=== PATIENT | female | born 1940 | race Two or more races ===

== ENCOUNTER 2016-11-23 12:51 | Inpatient (IN) | payer OTHER, MEDICAID ==
[~2016-11-23] VITALS: Ht 157.5 cm; Wt 67.6 kg
[2016-11-23] MEDS ORDERED: Morphine Sulfate 2mg/ml Inj IVP ONE (13:15)
[2016-11-23] MEDS ORDERED: Nitroglycerin 2% oint pkt TOPIC ONE (13:15)
[2016-11-23 14:01] LABS: MEAN CORPUSCULAR HEMOGLOBIN 27.5 PG (27.0-31.0); MEAN CORPUSCULAR HGB CONC 32.5 G/DL (32.0-36.0); MEAN CORPUSCULAR VOLUME 84 FL (80-99); MEAN PLATELET VOLUME 5.2 FL (6.5-10.1); PLATELET COUNT 522 K/UL (150-450); RED BLOOD COUNT 4.37 M/UL (4.20-5.40); RED CELL DISTRIBUTION WIDTH 13.9 % (11.6-14.8); WHITE BLOOD COUNT 14.9 K/UL (4.8-10.8)
--- NOTE | 2016-11-23 14:01 | Diagnostic Imaging Report ---
Indication: Chest Pain Comparison: None A single view chest radiograph was obtained. Findings: Lung volumes are low. No infiltrate seen. Pulmonary vascularity is within normal limits. The bones are osteopenic. There is a pacemaker on the left. Impression: No acute disease
[2016-11-23 14:09] LABS: INR 1.1 (0.9-1.1); PROTHROMBIN TIME 10.9 SEC (9.30-11.50)
[2016-11-23 14:15] VITALS: BP 120/56
[2016-11-23 14:16] LABS: TROPONIN I < 0.30 ng/mL (<=0.30)
[2016-11-23] MEDS ORDERED: COLACE100 MG ORAL (14:16)
[2016-11-23] MEDS ORDERED: CARVEDILOL25 MG ORAL (14:16)
[2016-11-23] MEDS ORDERED: ALBUTEROL2.5 MG/3 M INH (14:16)
[2016-11-23] MEDS ORDERED: BENAZEPRIL HCL10 MG ORAL (14:16)
[2016-11-23] MEDS ORDERED: BISACODYL5 MG ORAL (14:16)
[2016-11-23] MEDS ORDERED: CEFAZOLIN SODIUM1 G1 IV (14:16)
[2016-11-23] MEDS ORDERED: CATAPRES0.1 MG ORAL ×2 (14:16)
[2016-11-23] MEDS ORDERED: CLOPIDOGREL75 MG ORAL (14:16)
[2016-11-23 14:17] LABS: ALANINE AMINOTRANSFERASE 15 U/L (3-33); ALBUMIN/GLOBULIN RATIO 1.1 (1.0-2.7); ANION GAP 13 (5-15); ASPARTATE AMINO TRANSFERASE 51 U/L (5-40); CALCIUM 9.6 mg/dL (8.6-10.2); CARBON DIOXIDE 28 mEQ/L (20-30); CHLORIDE 99 mEQ/L (98-107); CREATININE 0.8 mg/dL (0.5-0.9); HEMOLYSIS 25; POTASSIUM 4.7 mEQ/L (3.4-4.9); SODIUM 140 mEQ/L (135-145); TOTAL PROTEIN 6.3 g/dL (6.6-8.7)
[2016-11-23 14:27] LABS: BAND NEUTROPHILS % (MANUAL) 1 % (0-8); BASOPHILS % (MANUAL) 0 % (0-2); EOSINOPHILS % (MANUAL) 3 % (0-3); LYMPHOCYTES % (MANUAL) 7 % (20-45); NEUTROPHILS % (MANUAL) 86 % (45-75); PLATELET ESTIMATE ADEQUATE; TOTAL CELLS COUNTED 100
[2016-11-23 14:28] LABS: PLATELET MORPHOLOGY NORMAL
[2016-11-23] MEDS ORDERED: FERROUS SULFAT325 MG ORAL ×2 (14:38→18:49)
[2016-11-23] MEDS ORDERED: GUAIFENESIN-CO118 M1 ORAL (14:38)
[2016-11-23] MEDS ORDERED: FLUTICASONE PRO16 G1 NASAL ×2 (14:38→18:45)
[2016-11-23] MEDS ORDERED: MULTIVITAMINS1 EAC2 ORAL (14:38)
[2016-11-23] MEDS ORDERED: PRO-STAT LIQUID30 ML ORAL (14:38)
[2016-11-23] MEDS ORDERED: ISOSORBIDE MONO20 MG PO (14:38)
[2016-11-23] MEDS ORDERED: ZOFRAN4 M3 ORAL (14:38)
[2016-11-23] MEDS ORDERED: VITAMIN C500 M1 ORAL (14:38)
[2016-11-23] MEDS ORDERED: NITROGLYCERIN0.4 MG SL (14:38)
[2016-11-23] MEDS ORDERED: NORCO 5-325 TA1 EACH ORAL (14:38)
[2016-11-23] MEDS ORDERED: ACETAMINOP160 MG/54 ORAL (14:38)
[2016-11-23] MEDS ORDERED: TESSALON PERLE100 MG ORAL (14:38)
--- NOTE | 2016-11-23 15:28 | Emergency Room Report ---
History of Present Illness General Chief Complaint: Chest Pain Source: Patient, EMS Present Illness HPI Patient presents with left-sided chest pain radiating up to her jaw. Apparently she was vomiting earlier today after having abdominal surgery. Allegedly this was for an abdominal hernia and appi. She was unable to get help from SNF staff for several hours. Paramedics treated the patient with Aspirin and one spray of nitroglycerin. She had a tachycardic rhythm after this. Her heart rate at that time he was 130 out. No other treatment was entertained or undertaken. She spontaneously converted from the rapid heart rate. She says complaining about pain in her chest at this time. She rates it 10/10. Pressure. She denied abdominal pain (initially) - seemed more concerned with chest discomfort. Allergies: Coded Allergies: No Known Allergies (Unverified , 11/23/16) Patient History Past Medical History: see triage record Past Surgical History: appy, other - hernia repair Social History: Denies: alcohol use, drug use, smoking Social History Narrative SNF Reviewed Nursing Documentation: PMH: Agreed, PSxH: Agreed Review of Systems All Other Systems: negative except mentioned in HPI Physical Exam Vital Signs Date Time Temp Pulse Resp B/P Pulse Ox O2 Delivery O2 Flow Rate FiO2 11/23/16 12:48 98.2 89 20 109/64 98 Nasal Cannula 4.0 11/23/16 13:40 100 Sp02 EP Interpretation: reviewed, normal General Appearance: well appearing, no apparent distress, GCS 15 Head: normocephalic Eyes: bilateral eye PERRL, bilateral eye normal inspection ENT: moist mucus membranes Neck: supple Respiratory: lungs clear, normal breath sounds Cardiovascular #1: regular rate, rhythm Cardiovascular #2: 2+ radial (R) Gastrointestinal: no guarding, no rebound, tenderness, other - post surgical dressings Musculoskeletal: back normal, gait/station normal, normal range of motion Neurologic: alert, oriented x3, grossly normal Psychiatric: mood/affect normal Skin: warm/dry, other - sallo Medical Decision Making Diagnostic Impression: Primary Impression: ACS (acute coronary syndrome) Additional Impressions: Tachyarrhythmia Abdominal pain Qualified Codes: R10.84 - Generalized abdominal pain Post-op pain ER Course Strips are reviewed from the field. Episode of supraventricular tachycardia spontaneously converted. The rate was 130. Patient presents with chest pain. Differential includes acute myocardial infarction, arrhythmia, GERD. She's postoperative and is also complaining about some abdominal pain and vomiting. Evaluation with EKG, CXR, labs. Treatment with nitrolpaste as aspirin given in field. EKG normal. CXR with pacer/defib. Chest pain is better. C/O abdominal pain. Treated with morphine. Not surgical abdomen. Dr. Kemp is here. Dr. Oscar contacted for consult. Patient improved. Leukocytosis, no source of infection. Will observe instead of starting antibiotics. Laboratory Tests Test 11/23/16 13:35 11/23/16 16:40 11/23/16 18:15 White Blood Count 14.9 K/UL (4.8-10.8) H Red Blood Count 4.37 M/UL (4.20-5.40) Hemoglobin 12.0 G/DL (12.0-16.0) Hematocrit 36.9 % (37.0-47.0) L Mean Corpuscular Volume 84 FL (80-99) Mean Corpuscular Hemoglobin 27.5 PG (27.0-31.0) Mean Corpuscular Hemoglobin Concent 32.5 G/DL (32.0-36.0) Red Cell Distribution Width 13.9 % (11.6-14.8) Platelet Count 522 K/UL (150-450) H Mean Platelet Volume 5.2 FL (6.5-10.1) L Neutrophils (%) (Auto) % (45.0-75.0) Lymphocytes (%) (Auto) % (20.0-45.0) Monocytes (%) (Auto) % (1.0-10.0) Eosinophils (%) (Auto) % (0.0-3.0) Basophils (%) (Auto) % (0.0-2.0) Differential Total Cells Counted 100 Neutrophils % (Manual) 86 % (45-75) H Lymphocytes % (Manual) 7 % (20-45) L Monocytes % (Manual) 3 % (1-10) Eosinophils % (Manual) 3 % (0-3) Basophils % (Manual) 0 % (0-2) Band Neutrophils 1 % (0-8) Platelet Estimate Adequate Platelet Morphology Normal Red Blood Cell Morphology Normal Prothrombin Time 10.9 SEC (9.30-11.50) Prothrombin Time INR 1.1 (0.9-1.1) PTT 27 SEC (23-33) Sodium Level 140 mEQ/L (135-145) Potassium Level 4.7 mEQ/L (3.4-4.9) Chloride Level 99 mEQ/L (98-107) Carbon Dioxide Level 28 mEQ/L (20-30) Anion Gap 13 (5-15) Blood Urea Nitrogen 14 mg/dL (7-23) Creatinine 0.8 mg/dL (0.5-0.9) Estimate Glomerular Filtration Rate mL/min (>60) Glucose Level 163 mg/dL (74-106) H Calcium Level 9.6 mg/dL (8.6-10.2) Total Bilirubin 0.5 mg/dL (0.0-1.2) Aspartate Amino Transferase (AST) 51 U/L (5-40) H Alanine Aminotransferase (ALT) 15 U/L (3-33) Alkaline Phosphatase 125 U/L (35-104) H Total Creatine Kinase 21 U/L (26-140) L Troponin I < 0.30 ng/mL (<=0.30) < 0.30 ng/mL (<=0.30) Pro-B-Type Natriuretic Peptide 205 pg/mL (0-450) Total Protein 6.3 g/dL (6.6-8.7) L Albumin 3.3 g/dL (3.5-5.2) L Globulin 3.0 g/dL Albumin/Globulin Ratio 1.1 (1.0-2.7) Urine Color Yellow Urine Appearance Clear Urine pH 6 (4.5-8.0) Urine Specific [place] 1.015 (1.005-1.035) Urine Protein 1+ (NEGATIVE) H Urine Glucose (UA) Negative (NEGATIVE) Urine Ketones Negative (NEGATIVE) Urine Occult Blood Negative (NEGATIVE) Urine Nitrite Negative (NEGATIVE) Urine Bilirubin Negative (NEGATIVE) Urine Urobilinogen 1 MG/DL (0.0-1.0) H Urine Leukocyte Esterase 1+ (NEGATIVE) H Urine RBC 0-2 /HPF (0 - 2) Urine WBC 5-10 /HPF (0 - 2) H Urine Squamous Epithelial Cells Few /LPF (NONE/OCC) Urine Bacteria Moderate /HPF (NONE) H Urine Fine Granular Casts 2-4 /LPF (NONE) H EKG Diagnostic Results Rate: normal Rhythm: NSR ST Segments: no acute changes Rhythm Strip Diag. Results EP Interpretation: yes Rhythm: NSR, no PVC's, no ectopy Other Impression Auditing Manager strip SVT vs VT rate 130, slight wide complexes Chest X-Ray Diagnostic Results EP Interpretation: Yes Findings: no consolidation, no effusion, no pneumothorax, no acute cardiopulmonary disease, other - atelectasis Number of Views: 1 Last Vital Signs Date Time Temp Pulse Resp B/P Pulse Ox O2 Delivery O2 Flow Rate FiO2 11/23/16 14:15 97.2 77 21 120/56 100 Room Air 11/23/16 13:40 100 11/23/16 12:48 4.0 Status: improved Disposition: ADMITTED INPATIENT Condition: Serious Referrals: NON PHYSICIAN (PCP) Edgar Santiago M.D. November 23, 2016 15:28
--- NOTE | 2016-11-23 15:41 | History & Physical ---
History and Physical History & Physicial dict ACS HTN DM2 recent appy, hernia repair prob CAD high WBC trops cardiology consult CT abd MAY Costello November 23, 2016 15:41
[2016-11-23] MEDS ORDERED: Nitroglycerin Subl 0.4mg tab (Bottle Of 25) SL PRN (15:45)
[2016-11-23] MEDS ORDERED: Acetaminophen Soln 160mg/5ml ORAL PRN (15:45)
[2016-11-23 17:14] LABS: APPEARANCE,URINE CLEAR; KETONES,URINE NEGATIVE (NEGATIVE); LEUKOCYTE ESTERASE ,URINE 1+ (NEGATIVE); NITRITE,URINE NEGATIVE (NEGATIVE); PH,URINE 6 (4.5-8.0); PROTEIN,URINE 1+ (NEGATIVE); UROBILINOGEN,URINE 1 MG/DL (0.0-1.0)
[2016-11-23] MEDS: Norco 5mg/325mg tab ORAL PRN (17:18)
[2016-11-23 17:29] LABS: BACTERIA,URINE MODERATE /HPF; RBC,URINE 0-2 /HPF (0 - 2); SQUAMOUS EPITHELIAL CELL,UR FEW /LPF (NONE/OCC)
[2016-11-23] MEDS ORDERED: ATORVASTATIN CA10 MG ORAL (18:36)
[2016-11-23] MEDS ORDERED: CLONIDINE HCL0.1 MG PO (18:40)
[2016-11-23] MEDS ORDERED: BISACODYL10 M1 RC (18:44)
[2016-11-23 18:45] VITALS: BP 138/69
[2016-11-23] MEDS: Benazepril 10mg tab ORAL SCH (18:47)
[2016-11-23] MEDS ORDERED: NORCO 5-325 TA1 EAC1 ORAL (18:47)
[2016-11-23] MEDS: ceFAZolin 1gm in D5W 55ml IVPB SCH (18:47)
[2016-11-23] MEDS ORDERED: ASCORBIC ACID500 MG ORAL (18:49)
[2016-11-23] MEDS ORDERED: ROBITUSSIN COU237 M1 PO (18:51)
[2016-11-23] MEDS ORDERED: MULTIVITAMINS1 EA13 ORAL (18:53)
[2016-11-23 19:19] LABS: TROPONIN I < 0.30 ng/mL (<=0.30)
[2016-11-23 20:00] VITALS: BP 146/73
[2016-11-23] MEDS: Carvedilol 25mg Tab ORAL SCH (21:26)
--- NOTE | 2016-11-23 23:08 | History and Physical Report ---
DATE OF ADMISSION: 11/23/2016 HISTORY OF PRESENT ILLNESS: The patient is a pleasant 76-year-old woman who comes to the emergency room by the EMS. She had left-sided chest pain radiating to the jaw. The pain was quite severe and was associated with emesis. Her heart rate in the field was 130 and apparently converted spontaneously to sinus rhythm. Her chest pain abated. She had no diaphoresis or shortness of breath. She is not aware of any history of coronary artery disease, but does have a pacemaker. She has risk factors, including diabetes and hypertension. She does have post op abdominal pain. PAST MEDICAL HISTORY: Diabetes, hypertension, and pacemaker. PAST SURGICAL HISTORY: She had abdominal surgery last week for appendicitis and hernia repair. She may have coronary artery disease based on her medication record including nitrates and Plavix. MEDICATIONS: Tylenol, albuterol, protein supplement, vitamins, benazepril, Baljinder, Dulcolax, Coreg, Ancef, Catapres, Plavix, Colace, iron, Flonase, Robitussin, [place], Isordil, multivitamins, nitroglycerin, and Zofran. ALLERGIES: None. SOCIAL HISTORY: She does not smoke or drink. She lives with her . REVIEW OF SYSTEMS: Otherwise unremarkable. PHYSICAL EXAMINATION: GENERAL: The patient appears to be in no distress. She is overweight . VITAL SIGNS: Vital signs are normal. Saturations 100% on room air and heart rate 77. HEENT: Head is normocephalic. NECK: No jugular venous distention. CHEST: Clear. Pacemaker in the left subclavian area. CARDIAC: Rhythm is regular. ABDOMEN: Soft. There are surgical dressings on the umbilicus in the right lower quadrant. EXTREMITIES: No clubbing, cyanosis, or edema. SKIN: Warm and dry. LABORATORY AND DIAGNOSTIC DATA: EKG shows a paced rhythm. Chest x-ray is normal. Laboratory studies show normal coagulation. Blood sugar is slightly elevated at 163. Liver enzymes mildly elevated. Troponin negative. Albumin 3.3. White count 14,900, hemoglobin 12, platelets 522,000, and there is a left shift. Urinalysis is pending. IMPRESSION: 1. Chest pain due to acute coronary syndrome. 2. Possible myocardial infarction. 3. Hypertension. 4. Mild diabetes. 5. Appendectomy and hernia repair. 6. Leukocytosis. PLAN: The patient will be admitted. We will monitor her serial troponin. Dr. Oscar will see her for Cardiology. We will get a CT scan of the abdomen in view of the elevated white count. Urinalysis will be obtained and Ancef will be continued. Ritchie Kemp M.D. DR: Gamaliel JOB#: [id number] CC: Edgar Oscar M.D. MTDClaudia
[2016-11-24] VITALS: BP 137/80
[2016-11-24] MEDS: Norco 5mg/325mg tab ORAL PRN
--- NOTE | 2016-11-24 00:08 | Consultation ---
DATE OF CONSULTATION: 11/23/2016 CARDIOLOGY CONSULT CONSULTING PHYSICIAN: Edgar Oscar M.D. REQUESTING PHYSICIAN: Ritchie Kemp M.D. REASON FOR CONSULTATION: Chest pain in the setting of coronary artery disease. HISTORY OF PRESENT ILLNESS: This is a 76-year-old female with a history of coronary artery disease and prior coronary stents. She has been convalescing at a retirement facility following a repair of right inguinal hernia that was incarcerated. She also had an incidental appendicitis treated at that time. Her postoperative course was complicated by a wound infection and cellulitis. Today, she apparently had nausea, vomiting, and subsequent chest pain. She was sent to the emergency room for evaluation. Her initial troponin level was negative. The patient has a permanent pacemaker and her admitting EKG revealed sinus rhythm with ventricular pacing. PAST MEDICAL HISTORY: Includes hypertension, coronary artery disease with history of coronary stents, permanent pacemaker, hyperlipidemia, class 1 angina, status post appendectomy, status post right inguinal hernia repair, and postoperative cellulitis. ALLERGIES: None. MEDICATIONS: Medications prior to admission, reviewed and reconciled. SOCIAL HISTORY: Denies smoking, alcohol, or substance abuse. FAMILY HISTORY: Noncontributory. REVIEW OF SYSTEMS: She denies fevers or chills. There is no history of thyroid disorder or diabetes. There is no history of seizure or stroke. She denies asthma or blood clots in the legs. She has a permanent pacemaker. She was checked about two months ago. She does not recall the device brand. She has had coronary stents. She denies chest pain. She has not taken nitroglycerin for some time. There is no history of kidney failure. She denies frequency or dysuria. She has aurea in her right abdomen still from her surgery. They itch. She denies melena or bright red blood per rectum. PHYSICAL EXAM: GENERAL: Appears well, in no distress at this time. VITAL SIGNS: Blood pressure 120/56, pulse 77, respirations 21, and afebrile. HEENT: Normocephalic and atraumatic. Conjunctivae are pink. Oropharynx clear. NECK: Supple. Jugular venous pressure normal. LUNGS: Clear. Chest wall without deformity or tenderness to palpation. BREASTS: Without discrete masses. Pacemaker pocket site clean, dry, and nontender. CARDIAC: Regular rhythm and rate. Normal S1 and paradoxically split S2. No murmur. ABDOMEN: Soft and nontender. There is some erythema in the mid suprapubic region. The right aurea are without erythema. There is some ecchymoses in the periumbilical region with erythema. EXTREMITIES: No clubbing, cyanosis, calf tenderness, or edema. LABORATORY DATA: White count 14.9, hemoglobin 12, potassium 4.7, BUN 14, and creatinine 0.8. Troponin negative. Albumin 3. Urinalysis with 5 to 10 white cells and moderate bacteria. IMPRESSION: Chest pain in the setting of immobility and in postoperative state raises concern over possible pulmonary embolic event or an acute coronary syndrome. Musculoskeletal and gastrointestinal etiologies are possible as well. Other problems include postoperative cellulitis and hypertension. Permanent pacemaker with apparent stable function. PLAN: 1. Cardiac monitoring. 2. Serial troponins. 3. Lipid panel. 4. Beta-blockade. 5. Anti-platelet therapy. 6. Nitrates as needed for chest pain. 7. DVT prophylaxis. 8. Venous duplex study. 9. Antimicrobials. 10. Skin care. 11. Possible staple removal. 12. Further recommendations including noninvasive assessment of coronary flow reserve. 13. We will follow. 14. May consider pacemaker interrogation if not recently done. Edgar Oscar M.D. DR: OLIVIA JOB#: [id number] CC: MISTY
[2016-11-24] MEDS ORDERED: Morphine Sulfate 2mg/ml Inj IVP PRN ×2 (00:15→08:15)
[2016-11-24] MEDS: ceFAZolin 1gm in D5W 55ml IVPB SCH ×3 (02:26→17:50)
[2016-11-24 02:40] LABS: ALANINE AMINOTRANSFERASE 14 U/L (3-33); ALBUMIN/GLOBULIN RATIO 0.8 (1.0-2.7); ANION GAP 14 (5-15); ASPARTATE AMINO TRANSFERASE 20 U/L (5-40); CALCIUM 9.3 mg/dL (8.6-10.2); CARBON DIOXIDE 25 mEQ/L (20-30); CHLORIDE 98 mEQ/L (98-107); CREATININE 0.6 mg/dL (0.5-0.9); HEMOLYSIS 1; POTASSIUM 4.5 mEQ/L (3.4-4.9); SODIUM 137 mEQ/L (135-145); TOTAL PROTEIN 6.5 g/dL (6.6-8.7)
[2016-11-24 02:57] LABS: TROPONIN I < 0.30 ng/mL (<=0.30)
[2016-11-24 03:00] LABS: MEAN CORPUSCULAR HGB CONC 32.2 G/DL (32.0-36.0); MEAN CORPUSCULAR VOLUME 84 FL (80-99); MEAN PLATELET VOLUME 5.1 FL (6.5-10.1); PLATELET COUNT 521 K/UL (150-450); RED BLOOD COUNT 4.45 M/UL (4.20-5.40); RED CELL DISTRIBUTION WIDTH 14.2 % (11.6-14.8); WHITE BLOOD COUNT 9.5 K/UL (4.8-10.8)
[2016-11-24 04:00] VITALS: BP 149/76
[2016-11-24 06:27] LABS: CHOLESTEROL/HDL RATIO 3.6 (3.3-4.4)
[2016-11-24 06:32] LABS: THYROID STIMULATING HORMONE 1.24 uIU/mL (0.300-4.500)
[2016-11-24 08:00] VITALS: BP 185/71
[2016-11-24 08:21] LABS: BAND NEUTROPHILS % (MANUAL) 0 % (0-8); BASOPHILS % (MANUAL) 0 % (0-2); EOSINOPHILS % (MANUAL) 0 % (0-3); LYMPHOCYTES % (MANUAL) 10 % (20-45); NEUTROPHILS % (MANUAL) 87 % (45-75); PLATELET ESTIMATE INCREASED; PLATELET MORPHOLOGY NORMAL; TOTAL CELLS COUNTED 100
[2016-11-24 08:22] LABS: ANISOCYTOSIS 1+; HYPOCHROMASIA 1+
[2016-11-24] MEDS: Carvedilol 25mg Tab ORAL SCH ×2 (09:00→20:50)
[2016-11-24] MEDS: Benazepril 10mg tab ORAL SCH ×2 (09:00→17:50)
--- NOTE | 2016-11-24 09:56 | General Progress Note ---
Assessment/Plan Assessment/Plan worse today with emesis and severe abdominal pain cardiology notes reviewed called surgery CT abd/pelvis pdg NGT, NPO, IVF increase pain meds. 1. Chest pain due to acute coronary syndrome. 2. Possible myocardial infarction. 3. Hypertension. 4. Mild diabetes. 5. Appendectomy and hernia repair. 6. Leukocytosis. Subjective Constitutional: Denies: fever Gastrointestinal/Abdominal: Reports: abdominal pain, vomiting Allergies: Coded Allergies: No Known Allergies (Unverified , 11/23/16) Objective Last 24 Hour Vital Signs Date Time Temp Pulse Resp B/P Pulse Ox O2 Delivery O2 Flow Rate FiO2 11/24/16 08:24 185/71 11/24/16 08:00 97.9 86 19 185/71 96 Room Air 11/24/16 04:00 98.1 76 20 149/76 100 Room Air 11/24/16 03:57 79 11/24/16 00:00 75 11/24/16 00:00 96.6 73 18 137/80 99 Room Air 11/23/16 21:26 88 146/73 11/23/16 20:00 97.9 74 20 146/73 96 Room Air 4.0 100 11/23/16 18:47 138/69 11/23/16 18:45 98.2 74 20 138/69 96 Room Air 11/23/16 17:59 75 11/23/16 16:58 79 16 132/59 94 Room Air 11/23/16 14:15 97.2 77 21 120/56 100 Room Air 11/23/16 14:13 98.2 11/23/16 13:43 131/56 11/23/16 13:40 82 20 Nasal Cannula 100 11/23/16 12:48 98.2 89 20 109/64 98 Nasal Cannula 4.0 Intake and Output 11/23/16 11/24/16 19:00 07:00 Intake Total 150 ml Balance 150 ml Intake Oral 0 ml IV Total 150 ml Laboratory Tests 11/23/16 13:35: White Blood Count 14.9H, Red Blood Count 4.37, Hemoglobin 12.0, Hematocrit 36.9L , Mean Corpuscular Volume 84, Mean Corpuscular Hemoglobin 27.5, Mean Corpuscular Hemoglobin Concent 32.5, Red Cell Distribution Width 13.9, Platelet Count 522H, Mean Platelet Volume 5.2L, Neutrophils (%) (Auto) , Lymphocytes (%) (Auto) , Monocytes (%) (Auto) , Eosinophils (%) (Auto) , Basophils (%) (Auto) , Differential Total Cells Counted 100, Neutrophils % (Manual) 86H, Lymphocytes % (Manual) 7L, Monocytes % (Manual) 3, Eosinophils % (Manual) 3, Basophils % ( Manual) 0, Band Neutrophils 1, Platelet Estimate Adequate, Platelet Morphology Normal, Red Blood Cell Morphology Normal, Prothrombin Time 10.9, Prothromb Time International Ratio 1.1, Activated Partial Thromboplast Time 27, Sodium Level 140, Potassium Level 4.7, Chloride Level 99, Carbon Dioxide Level 28, Anion Gap 13, Blood Urea Nitrogen 14, Creatinine 0.8, Estimat Glomerular Filtration Rate , Glucose Level 163H, Calcium Level 9.6, Total Bilirubin 0.5, Aspartate Amino Transf (AST/SGOT) 51H, Alanine Aminotransferase (ALT/SGPT) 15, Alkaline Phosphatase 125H, Total Creatine Kinase 21L, Troponin I < 0.30, Pro-B-Type Natriuretic Peptide 205, Total Protein 6.3L, Albumin 3.3L, Globulin 3.0, Albumin /Globulin Ratio 1.1 11/23/16 16:40: Urine Color Yellow, Urine Appearance Clear, Urine pH 6, Urine Specific [place] 1.015, Urine Protein 1+H, Urine Glucose (UA) Negative, Urine Ketones Negative, Urine Occult Blood Negative, Urine Nitrite Negative, Urine Bilirubin Negative, Urine Urobilinogen 1H, Urine Leukocyte Esterase 1+H, Urine RBC 0-2, Urine WBC 5- 10H, Urine Squamous Epithelial Cells Few, Urine Bacteria ModerateH, Urine Fine Granular Casts 2-4H 11/23/16 18:15: Troponin I < 0.30 11/24/16 01:50: White Blood Count 9.5, Red Blood Count 4.45, Hemoglobin 12.0, Hematocrit 37.4, Mean Corpuscular Volume 84, Mean Corpuscular Hemoglobin 27.0, Mean Corpuscular Hemoglobin Concent 32.2, Red Cell Distribution Width 14.2, Platelet Count 521H, Mean Platelet Volume 5.1L, Neutrophils (%) (Auto) , Lymphocytes (%) (Auto) , Monocytes (%) (Auto) , Eosinophils (%) (Auto) , Basophils (%) (Auto) , Differential Total Cells Counted 100, Neutrophils % (Manual) 87H, Lymphocytes % (Manual) 10L, Monocytes % (Manual) 3, Eosinophils % (Manual) 0, Basophils % ( Manual) 0, Band Neutrophils 0, Platelet Estimate IncreasedH, Platelet Morphology Normal, Sodium Level 137, Potassium Level 4.5, Chloride Level 98, Carbon Dioxide Level 25, Anion Gap 14, Blood Urea Nitrogen 18, Creatinine 0.6, Estimat Glomerular Filtration Rate , Glucose Level 162H, Calcium Level 9.3, Total Bilirubin 0.5, Aspartate Amino Transf (AST/SGOT) 20, Alanine Aminotransferase (ALT/SGPT) 14, Alkaline Phosphatase 113H, Troponin I < 0.30, Total Protein 6.5L, Albumin 2.9L, Globulin 3.6, Albumin/Globulin Ratio 0.8L, Hypochromasia 1+, Anisocytosis 1+, Triglycerides Level 88, Cholesterol Level 125 , LDL Cholesterol 72, HDL Cholesterol 35, Cholesterol/HDL Ratio 3.6, Thyroid Stimulating Hormone (TSH) 1.240 Height (Feet): 5 Height (Inches): 2.00 Weight (Pounds): 149 General Appearance: no apparent distress Neck: supple Cardiovascular: normal rate, regular rhythm Respiratory/Chest: lungs clear Abdomen: non tender, soft, no organomegaly, no mass, hypoactive bowel sounds, other - surgical dressings Edema: no edema noted MAY Anderson November 24, 2016 09:56
[2016-11-24] MEDS: Morphine Sulfate 4mg/ml Inj IVP PRN ×2 (10:07→14:54)
[2016-11-24] MEDS: D5 1/2NS w/KCl 20mEq 1,000 ML IV SCH ×2 (10:11→20:00)
--- NOTE | 2016-11-24 10:32 | General Surgery Progress Note ---
General Surgery-Progress Note Subjective Reason for Consult abd pain Procedure Performed recent laparoscopic appendectomy and right inguinal hernia repair 1 week ago, no fever or chills, eating OK till abd pain started with chest pain and N/V Symptoms: improved Objective Last 24 Hour Vital Signs Date Time Temp Pulse Resp B/P Pulse Ox O2 Delivery O2 Flow Rate FiO2 11/24/16 08:24 185/71 11/24/16 08:00 97.9 86 19 185/71 96 Room Air 11/24/16 04:00 98.1 76 20 149/76 100 Room Air 11/24/16 03:57 79 11/24/16 00:00 75 11/24/16 00:00 96.6 73 18 137/80 99 Room Air 11/23/16 21:26 88 146/73 11/23/16 20:00 97.9 74 20 146/73 96 Room Air 4.0 100 11/23/16 18:47 138/69 11/23/16 18:45 98.2 74 20 138/69 96 Room Air 11/23/16 17:59 75 11/23/16 16:58 79 16 132/59 94 Room Air 11/23/16 14:15 97.2 77 21 120/56 100 Room Air 11/23/16 14:13 98.2 11/23/16 13:43 131/56 11/23/16 13:40 82 20 Nasal Cannula 100 11/23/16 12:48 98.2 89 20 109/64 98 Nasal Cannula 4.0 I&O Intake and Output 11/23/16 11/24/16 19:00 07:00 Intake Total 150 ml Balance 150 ml Intake Oral 0 ml IV Total 150 ml Wound: clean - slight edema and ecchymosis right inguinal hernia scar, no infection Laboratory Tests Test 11/23/16 13:35 11/23/16 16:40 11/23/16 18:15 11/24/16 01:50 White Blood Count 14.9 K/UL (4.8-10.8) H 9.5 K/UL (4.8-10.8) Red Blood Count 4.37 M/UL (4.20-5.40) 4.45 M/UL (4.20-5.40) Hemoglobin 12.0 G/DL (12.0-16.0) 12.0 G/DL (12.0-16.0) Hematocrit 36.9 % (37.0-47.0) L 37.4 % (37.0-47.0) Mean Corpuscular Volume 84 FL (80-99) 84 FL (80-99) Mean Corpuscular Hemoglobin 27.5 PG (27.0-31.0) 27.0 PG (27.0-31.0) Mean Corpuscular Hemoglobin Concent 32.5 G/DL (32.0-36.0) 32.2 G/DL (32.0-36.0) Red Cell Distribution Width 13.9 % (11.6-14.8) 14.2 % (11.6-14.8) Platelet Count 522 K/UL (150-450) H 521 K/UL (150-450) H Mean Platelet Volume 5.2 FL (6.5-10.1) L 5.1 FL (6.5-10.1) L Neutrophils (%) (Auto) % (45.0-75.0) % (45.0-75.0) Lymphocytes (%) (Auto) % (20.0-45.0) % (20.0-45.0) Monocytes (%) (Auto) % (1.0-10.0) % (1.0-10.0) Eosinophils (%) (Auto) % (0.0-3.0) % (0.0-3.0) Basophils (%) (Auto) % (0.0-2.0) % (0.0-2.0) Differential Total Cells Counted 100 100 Neutrophils % (Manual) 86 % (45-75) H 87 % (45-75) H Lymphocytes % (Manual) 7 % (20-45) L 10 % (20-45) L Monocytes % (Manual) 3 % (1-10) 3 % (1-10) Eosinophils % (Manual) 3 % (0-3) 0 % (0-3) Basophils % (Manual) 0 % (0-2) 0 % (0-2) Band Neutrophils 1 % (0-8) 0 % (0-8) Platelet Estimate Adequate Increased H Platelet Morphology Normal Normal Red Blood Cell Morphology Normal Prothrombin Time 10.9 SEC (9.30-11.50) Prothromb Time International Ratio 1.1 (0.9-1.1) Activated Partial Thromboplast Time 27 SEC (23-33) Sodium Level 140 mEQ/L (135-145) 137 mEQ/L (135-145) Potassium Level 4.7 mEQ/L (3.4-4.9) 4.5 mEQ/L (3.4-4.9) Chloride Level 99 mEQ/L (98-107) 98 mEQ/L (98-107) Carbon Dioxide Level 28 mEQ/L (20-30) 25 mEQ/L (20-30) Anion Gap 13 (5-15) 14 (5-15) Blood Urea Nitrogen 14 mg/dL (7-23) 18 mg/dL (7-23) Creatinine 0.8 mg/dL (0.5-0.9) 0.6 mg/dL (0.5-0.9) Estimat Glomerular Filtration Rate mL/min (>60) mL/min (>60) Glucose Level 163 mg/dL (74-106) H 162 mg/dL (74-106) H Calcium Level 9.6 mg/dL (8.6-10.2) 9.3 mg/dL (8.6-10.2) Total Bilirubin 0.5 mg/dL (0.0-1.2) 0.5 mg/dL (0.0-1.2) Aspartate Amino Transf (AST/SGOT) 51 U/L (5-40) H 20 U/L (5-40) Alanine Aminotransferase (ALT/SGPT) 15 U/L (3-33) 14 U/L (3-33) Alkaline Phosphatase 125 U/L (35-104) H 113 U/L (35-104) H Total Creatine Kinase 21 U/L (26-140) L Troponin I < 0.30 ng/mL (<=0.30) < 0.30 ng/mL (<=0.30) < 0.30 ng/mL (<=0.30) Pro-B-Type Natriuretic Peptide 205 pg/mL (0-450) Total Protein 6.3 g/dL (6.6-8.7) L 6.5 g/dL (6.6-8.7) L Albumin 3.3 g/dL (3.5-5.2) L 2.9 g/dL (3.5-5.2) L Globulin 3.0 g/dL 3.6 g/dL Albumin/Globulin Ratio 1.1 (1.0-2.7) 0.8 (1.0-2.7) L Urine Color Yellow Urine Appearance Clear Urine pH 6 (4.5-8.0) Urine Specific [place] 1.015 (1.005-1.035) Urine Protein 1+ (NEGATIVE) H Urine Glucose (UA) Negative (NEGATIVE) Urine Ketones Negative (NEGATIVE) Urine Occult Blood Negative (NEGATIVE) Urine Nitrite Negative (NEGATIVE) Urine Bilirubin Negative (NEGATIVE) Urine Urobilinogen 1 MG/DL (0.0-1.0) H Urine Leukocyte Esterase 1+ (NEGATIVE) H Urine RBC 0-2 /HPF (0 - 2) Urine WBC 5-10 /HPF (0 - 2) H Urine Squamous Epithelial Cells Few /LPF (NONE/OCC) Urine Bacteria Moderate /HPF (NONE) H Urine Fine Granular Casts 2-4 /LPF (NONE) H Hypochromasia 1+ Anisocytosis 1+ Triglycerides Level 88 mg/dL (< 150) Cholesterol Level 125 mg/dL (< 200) LDL Cholesterol 72 mg/dL (60-99) HDL Cholesterol 35 mg/dL (> 60) Cholesterol/HDL Ratio 3.6 (3.3-4.4) Thyroid Stimulating Hormone (TSH) 1.240 uIU/mL (0.300-4.500) Additional Comments CAT scan of abdomen : possible pancreatitiswith edema in tail area, minimal ascites (postop), no abscess, some RIH subq fluid (blood vs serum. Assessment Additional Comments Stable s/p lap appy and RIH repair Possible pancreatitis No evidence of cardiac issue at this time. Plan Additional Comments Amylase, lipase, liquids, Will follow. CINDY JENNINGS November 24, 2016 10:32
[2016-11-24 10:53] LABS: TROPONIN I < 0.30 ng/mL (<=0.30)
[2016-11-24 12:00] VITALS: BP 174/78
--- NOTE | 2016-11-24 15:43 | Wound Care Consultation ---
Wound Assessment Wound Assessment : Wound Present on Admission: Yes New Wound: No Status Change of Wound: No Wound Location Body Site: perineal area - and coccyx area Wound Type: rash - fungal, with erosion Mihai Test: Does not Mihai Percent of Wound [place]/Red: 100 Wound Drainage Odor: None/Absent Tissue Surrounding Wound: Erythemic Wound General Appearance: Reddened Wound Comment #1 Perineal area, coccyx area Left and right groin area fungal rashes with erosion Recommendation -Keep clean and dry -Turn and reposition -Local care for rash per protocol -Assess and f/u accordingly for any change SOREN BENJAMIN RN November 24, 2016 15:43
[2016-11-24 16:00] VITALS: BP 164/67
[2016-11-24 20:25] VITALS: BP 168/70
[2016-11-25 00:07] VITALS: BP 166/79
--- NOTE | 2016-11-25 02:38 | Progress Note ---
DATE: 11/24/2016 SUBJECTIVE: The patient continues to have nausea, vomiting, and abdominal pain. Surgical evaluation noted. Elevated pancreatic enzymes reviewed. No specific chest pain. OBJECTIVE: VITAL SIGNS: Blood pressure 185/71, heart rate 86, and respiratory rate 19. NECK: Supple. LUNGS: Clear. CARDIAC: Regular rhythm and rate. Normal S1 and S2 with a fourth heart sound. ABDOMEN: Soft. Slightly tender in the lower quadrants. EXTREMITIES: No edema. Surgical dressings are in place. LABORATORY DATA: Troponin is negative today. White count down to 9.5 and hemoglobin 12. Amylase 800 and lipase 900. LDL 72. Albumin 2.9. Potassium 4.5, BUN 18, and creatinine 0.6. IMPRESSION: 1. Acute pancreatitis. 2. Noncardiac chest pain. 3. Status post right inguinal hernia repair and appendectomy with postoperative wound infection and cellulitis. 4. Mild protein-calorie malnutrition. 5. Hypertensive heart disease with accelerated blood pressure/hypertensive urgency, possibly due to pain. 6. Permanent pacemaker with appropriate function. 7. Hx of CAD and prior coronary stent. PLAN: 1. Hold diet. 2. Volume support by IV route. 3. Pain control. 4. IV empiric antibiotics. 5. Insulin coverage by sliding scale. 6. DVT prophylaxis. 7. Titrate antihypertensive regimen following control of blood pressure. 8. If NPO, topical antihypertensive regimen will be given. Edgar Oscar M.D. DR: BORIS JOB#: [id number] CC: MISTY
[2016-11-25] MEDS: ceFAZolin 1gm in D5W 55ml IVPB SCH ×2 (03:22→10:17)
[2016-11-25] MEDS: Morphine Sulfate 2mg/ml Inj IVP PRN ×2 (03:23→15:21)
[2016-11-25 04:11] VITALS: BP 162/77
[2016-11-25] MEDS: D5 1/2NS w/KCl 20mEq 1,000 ML IV SCH ×3 (05:04→15:21)
[2016-11-25 08:00] VITALS: BP 147/66
[2016-11-25 08:15] LABS: ALANINE AMINOTRANSFERASE 5 U/L (3-33); ALBUMIN/GLOBULIN RATIO 0.7 (1.0-2.7); ANION GAP 10 (5-15); ASPARTATE AMINO TRANSFERASE 11 U/L (5-40); CARBON DIOXIDE 29 mEQ/L (20-30); CHLORIDE 98 mEQ/L (98-107); CREATININE 0.6 mg/dL (0.5-0.9); HEMOLYSIS 1; MEAN CORPUSCULAR HEMOGLOBIN 29.7 PG (27.0-31.0); MEAN CORPUSCULAR HGB CONC 34.1 G/DL (32.0-36.0); MEAN CORPUSCULAR VOLUME 87 FL (80-99); MEAN PLATELET VOLUME 5.1 FL (6.5-10.1); PLATELET COUNT 369 K/UL (150-450); POTASSIUM 4.1 mEQ/L (3.4-4.9); RED BLOOD COUNT 3.75 M/UL (4.20-5.40); SODIUM 137 mEQ/L (135-145); TOTAL PROTEIN 6.1 g/dL (6.6-8.7); WHITE BLOOD COUNT 17.7 K/UL (4.8-10.8)
--- NOTE | 2016-11-25 08:41 | Diagnostic Imaging Report ---
Indication: Abdominal pain Technique: Spiral acquisitions obtained through the abdomen and pelvis. Patient given oral contrast. No IV contrast utilized, per referring physician request. Multiplanar reconstructions were generated. Total dose length product 779 mGycm. CTDIvol(s) 15 mGy. Dose reduction achieved using automated exposure control Comparison: None Findings: There is evidence of recent surgery. Skin aurea overlie the right flank. Deep to this, there is a subcutaneous phlegmon or fluid collection that measures approximately 7.8 cm transverse by 2.3 cm AP by 4.6 cm craniocaudad. A few gas bubbles are seen within the wound, presumably retained air from the recent surgery. [place] are seen in the region of the appendix, which is absent. Some infiltration of the fat in the region of the appendix is noted, but no focal fluid collections are evident. Skin aurea are seen in the region of the mid abdominal midline. There is infiltration of the subcutaneous fat deep to it, but no definite pathologic fluid collections are evident. Skin aurea are seen in the lower abdominal wall just left of midline, without significant subcutaneous fat changes. There is a small fat-containing ventral hernia in the pelvic midline. There is equivocal slight swelling of the pancreas. Considerable infiltration of the mesenteric fat lateral to the greater curvature of the stomach is noted. There is also considerable infiltration of the mesenteric fat caudad to the pancreas, and tracking down Gerota's fascia bilaterally. No discrete fluid collections are demonstrated. No gas collections are evident. Small amount of ascites fluid is seen over the dome of the liver as well as within the pelvis. This demonstrates slightly higher than normal fluid attenuation, may be bloody. No free intraperitoneal air. There is slight wall thickening of the duodenum adjacent to the pancreatic head. There is a small sliding-type hiatal hernia. Lack of IV contrast limits assessment of the solid organs. The liver demonstrates a subcentimeter low-attenuation lesion in segment 8 which is too small to characterize. The gallbladder is somewhat distended, no radiopaque calculi demonstrated. No biliary ductal dilatation. No focal pancreatic abnormality. The spleen, adrenals are unremarkable. The kidneys demonstrate bilateral cysts. No retroperitoneal or mesenteric mass or adenopathy. No pelvic mass or adenopathy. The uterus is not visualized, presumed surgically absent. There is bilateral L5 spondylolysis, grade 2 L5 on S1 spondylolisthesis. There is an old healed fracture deformity of the left inferior and superior pubic rami. The superior pubic ramus fracture appears incompletely united, however. There are calcifications within the subcutaneous fat of the lumbar region, probably from prior injections. Pacemaker wires are seen within the heart. The lung bases demonstrate some nonspecific interstitial septal prominence and bronchial wall thickening and minimal bronchiectasis. Impression: Postsurgical changes, as described, with evidence of recent laparoscopic appendectomy. There is a 7.8 x 2.3 x 4.6 cm phlegmon or fluid collection within the right lower quadrant wound. This is probably routine postoperative fluid, but abscess collection not completely excludable. Equivocal slight prominence of the pancreas. There is considerable infiltration of the peripancreatic and upper abdominal fat as well as fluid/thickening of Gerota's fascia bilaterally. While possibly related to the recent surgery, distribution of this is not typical for such, and raises concern for acute pancreatitis. Correlation with laboratory findings is recommended. Trace ascites fluid. Possibly related to recent surgery or pancreatic disease. Somewhat high attenuation indicates this fluid could be bloody Slight wall thickening of the duodenum, could be related to adjacent pancreatic disease or could indicate mild duodenitis -- Bilateral L5 spondylolysis, with grade 2 L5 on S1 spondylolisthesis and secondary degenerative change Small fat-containing ventral hernia in the pelvic midline Subcentimeter low-attenuation lesion within the liver, too small to characterize, most likely benign cyst or bile hamartoma. No further followup necessary Incidental findings as noted, including nonspecific bilateral basilar pulmonary interstitial changes, pacemaker wires, left superior and inferior pubic rami old fractures, evidence of prior hysterectomy, bilateral renal cysts Images previously reviewed in person with Dr. Reynolds The CT scanner at [facility] is accredited by the [employer] and the scans are performed using protocols designed to limit radiation exposure to as low as reasonably achievable to attain images of sufficient resolution adequate for diagnostic evaluation.
[2016-11-25 09:03] LABS: ANISOCYTOSIS 1+; BAND NEUTROPHILS % (MANUAL) 0 % (0-8); BASOPHILS % (MANUAL) 0 % (0-2); EOSINOPHILS % (MANUAL) 0 % (0-3); HYPOCHROMASIA 1+; LYMPHOCYTES % (MANUAL) 8 % (20-45); NEUTROPHILS % (MANUAL) 86 % (45-75); PLATELET ESTIMATE ADEQUATE; PLATELET MORPHOLOGY NORMAL; TOTAL CELLS COUNTED 100
[2016-11-25] MEDS: Benazepril 10mg tab ORAL SCH ×2 (10:16→18:14)
[2016-11-25] MEDS: Carvedilol 25mg Tab ORAL SCH ×2 (10:16→22:05)
--- NOTE | 2016-11-25 10:33 | General Surgery Progress Note ---
General Surgery-Progress Note Subjective Symptoms: improved Additional Comments patient seen and examined at bedside. no acute events. doing well. minimal pain. no n/v/f/c. comfortable. wants to eat and go home Objective Last 24 Hour Vital Signs Date Time Temp Pulse Resp B/P Pulse Ox O2 Delivery O2 Flow Rate FiO2 11/25/16 10:16 97 147/66 11/25/16 10:16 147/66 11/25/16 08:00 99.1 89 20 147/66 95 Room Air 11/25/16 08:00 97 11/25/16 05:06 179/83 11/25/16 04:11 97.0 102 20 162/77 Room Air 11/25/16 04:00 98 11/25/16 00:07 96.8 100 20 166/79 95 Room Air 11/25/16 00:00 101 11/24/16 21:12 183/113 11/24/16 20:50 102 183/113 11/24/16 20:25 97.5 99 20 168/70 96 Room Air 11/24/16 20:00 101 11/24/16 17:50 164/67 11/24/16 16:00 98.1 89 19 164/67 95 Room Air 11/24/16 16:00 88 11/24/16 12:00 96.3 85 48 174/78 94 Room Air 11/24/16 12:00 88 I&O Intake and Output 11/24/16 11/25/16 19:00 07:00 # Voids 2 Wound: clean, dry, intact Drains: none Cardiovascular: RSR Respiratory: clear Abdomen: soft, distended, non-tender, present bowel sounds, other - incisions c /d/i, incisional tenderness, mild LUQ tenderness, mild distention. brusing around incisions. Extremities: no edema, no tenderness Laboratory Tests Test 11/25/16 07:15 White Blood Count 17.7 K/UL (4.8-10.8) #H Red Blood Count 3.75 M/UL (4.20-5.40) L Hemoglobin 11.1 G/DL (12.0-16.0) L Hematocrit 32.7 % (37.0-47.0) L Mean Corpuscular Volume 87 FL (80-99) Mean Corpuscular Hemoglobin 29.7 PG (27.0-31.0) Mean Corpuscular Hemoglobin Concent 34.1 G/DL (32.0-36.0) Red Cell Distribution Width 14.0 % (11.6-14.8) Platelet Count 369 K/UL (150-450) Mean Platelet Volume 5.1 FL (6.5-10.1) L Neutrophils (%) (Auto) % (45.0-75.0) Lymphocytes (%) (Auto) % (20.0-45.0) Monocytes (%) (Auto) % (1.0-10.0) Eosinophils (%) (Auto) % (0.0-3.0) Basophils (%) (Auto) % (0.0-2.0) Differential Total Cells Counted 100 Neutrophils % (Manual) 86 % (45-75) H Lymphocytes % (Manual) 8 % (20-45) L Monocytes % (Manual) 6 % (1-10) Eosinophils % (Manual) 0 % (0-3) Basophils % (Manual) 0 % (0-2) Band Neutrophils 0 % (0-8) Platelet Estimate Adequate Platelet Morphology Normal Hypochromasia 1+ Anisocytosis 1+ Sodium Level 137 mEQ/L (135-145) Potassium Level 4.1 mEQ/L (3.4-4.9) Chloride Level 98 mEQ/L (98-107) Carbon Dioxide Level 29 mEQ/L (20-30) Anion Gap 10 (5-15) Blood Urea Nitrogen 16 mg/dL (7-23) Creatinine 0.6 mg/dL (0.5-0.9) Estimat Glomerular Filtration Rate mL/min (>60) Glucose Level 163 mg/dL (74-106) H Calcium Level 9.0 mg/dL (8.6-10.2) Total Bilirubin 0.5 mg/dL (0.0-1.2) Aspartate Amino Transf (AST/SGOT) 11 U/L (5-40) Alanine Aminotransferase (ALT/SGPT) 5 U/L (3-33) Alkaline Phosphatase 89 U/L (35-104) Total Protein 6.1 g/dL (6.6-8.7) L Albumin 2.7 g/dL (3.5-5.2) L Globulin 3.4 g/dL Albumin/Globulin Ratio 0.7 (1.0-2.7) L Plan Problems: (1) Abdominal pain Assessment & Plan: 76F recently had lap hernia repair and appendectomy and then presented with abdominal pain, nausea, emesis. CT scan with peripanc inflammation suggestive of pancreatitis. [place]/Lip elevated. currently afebrile , HD stable, exam improved, no n/v. Does have leukocytosis today. Dx: Acute pancreatitis -abdominal ultrasound to evaluate for gallstones and gallbladder etiology -okay for clears if can tolerate diet without worsening abdominal pain -conservative medical management of acute pancreatitis -surgical wounds currently look stable without signs of infection. unsure of etiology of leukocytosis at this time. continue IV Abx. -will continue to follow with you. thank you. Douglas Lee November 25, 2016 10:33
[2016-11-25 12:00] VITALS: BP 118/69
[2016-11-25] MEDS ORDERED: Vancomycin 1gm in D5W 275ml IVPB ONE (12:30)
--- NOTE | 2016-11-25 12:39 | Diagnostic Imaging Report ---
Indications: Nasogastric tube placement Technique: Portable supine AP abdomen Findings: Comparison: CT abdomen pelvis earlier today Nasogastric tube has been placed, tip in the region of the gastric fundus, proximal side-port the region of esophagogastric junction. Lower abdomen and pelvis excluded from image. Suggestion of mild distention of small bowel loop left midabdomen, incompletely imaged. Gas-filled colon the right midabdomen. Thorax included on image. Lungs and pleura clear. Heart size, pulmonary vasculature within normal limits. Left chest wall pacemaker in place. IMPRESSION: Nasogastric tube tip in stomach, recommend advancement by 10 cm No evidence of acute abdominopelvic disease, limited as described. Lower abdominopelvic pathology not excludable, due to exclusion from image No evidence of acute cardiopulmonary disease This correlates with Dr. Hutchins's preliminary report.
--- NOTE | 2016-11-25 15:08 | Diagnostic Imaging Report ---
APPROVED REPORT CPT Code: 49832 Present Symptoms Lower Extremity Pain: Bilateral BILATERAL: Imaging reveals a patent deep venous system bilaterally. There is no evidence of thrombus within the femoral, popliteal or tibial segments. The greater saphenous veins are also within normal limits. Doppler indicates normal spontaneous flow within these segments.
[2016-11-25] MEDS: Piperacillin/Tazobactam 3.375 GM in D5W 110 ML IVPB SCH ×2 (15:21→22:06)
[2016-11-25 16:00] VITALS: BP 133/52
[2016-11-25] MEDS ORDERED: Tubing IV Secondary IV ONE ×2 (16:19→18:09)
--- NOTE | 2016-11-25 16:19 | General Progress Note ---
Assessment/Plan Assessment/Plan continued abdominal pain seen by surgery, dx pncreatitis amylase and lipase high called ID re WBC higher clears, IVF 1. Chest pain due to acute coronary syndrome, known CAD, stent 2. no myocardial infarction. 3. Hypertension. 4. Mild diabetes. 5. Appendectomy and hernia repair. 6. Leukocytosis 7. Pancreatitis Subjective Gastrointestinal/Abdominal: Reports: abdominal pain Allergies: Coded Allergies: No Known Allergies (Unverified , 11/23/16) Objective Last 24 Hour Vital Signs Date Time Temp Pulse Resp B/P Pulse Ox O2 Delivery O2 Flow Rate FiO2 11/25/16 15:51 96.0 11/25/16 12:00 96.0 77 17 118/69 94 Room Air 11/25/16 12:00 80 11/25/16 10:16 97 147/66 11/25/16 10:16 147/66 11/25/16 08:00 99.1 89 20 147/66 95 Room Air 11/25/16 08:00 97 11/25/16 05:06 179/83 11/25/16 04:11 97.0 102 20 162/77 Room Air 11/25/16 04:00 98 11/25/16 00:07 96.8 100 20 166/79 95 Room Air 11/25/16 00:00 101 11/24/16 21:12 183/113 11/24/16 20:50 102 183/113 11/24/16 20:25 97.5 99 20 168/70 96 Room Air 11/24/16 20:00 101 11/24/16 17:50 164/67 Intake and Output 11/24/16 11/25/16 19:00 07:00 # Voids 2 Laboratory Tests 11/25/16 07:15: White Blood Count 17.7#H, Red Blood Count 3.75L, Hemoglobin 11.1L, Hematocrit 32.7L, Mean Corpuscular Volume 87, Mean Corpuscular Hemoglobin 29.7, Mean Corpuscular Hemoglobin Concent 34.1, Red Cell Distribution Width 14.0, Platelet Count 369, Mean Platelet Volume 5.1L, Neutrophils (%) (Auto) , Lymphocytes (%) ( Auto) , Monocytes (%) (Auto) , Eosinophils (%) (Auto) , Basophils (%) (Auto) , Differential Total Cells Counted 100, Neutrophils % (Manual) 86H, Lymphocytes % (Manual) 8L, Monocytes % (Manual) 6, Eosinophils % (Manual) 0, Basophils % ( Manual) 0, Band Neutrophils 0, Platelet Estimate Adequate, Platelet Morphology Normal, Hypochromasia 1+, Anisocytosis 1+, Sodium Level 137, Potassium Level 4.1 , Chloride Level 98, Carbon Dioxide Level 29, Anion Gap 10, Blood Urea Nitrogen 16, Creatinine 0.6, Estimat Glomerular Filtration Rate , Glucose Level 163H, Calcium Level 9.0, Total Bilirubin 0.5, Aspartate Amino Transf (AST/SGOT) 11, Alanine Aminotransferase (ALT/SGPT) 5, Alkaline Phosphatase 89, Total Protein 6.1L, Albumin 2.7L, Globulin 3.4, Albumin/Globulin Ratio 0.7L Height (Feet): 5 Height (Inches): 2.00 Weight (Pounds): 149 General Appearance: no apparent distress Cardiovascular: normal rate Respiratory/Chest: lungs clear Abdomen: non tender, soft MAY MARSH November 25, 2016 16:19
--- NOTE | 2016-11-25 16:49 | Progress Note ---
DATE: 11/25/2016 SUBJECTIVE: The patient feels better. She has less pain. No nausea or vomiting. OBJECTIVE: VITAL SIGNS: Blood pressure is still labile up to 179/83 this morning, now 147/66, heart rate 97, respiratory rate 20, and temperature 99.1. SKIN: Skin site with no drainage on the abdomen. HEENT: Conjunctivae are pink. Oropharynx clear. NECK: Supple. LUNGS: Clear. CARDIAC: Regular rhythm and rate. Normal S1, S2. ABDOMEN: Soft. Mild tenderness in the left upper quadrant. EXTREMITIES: Trace edema. LABORATORY DATA: White count up to 17.7 and hemoglobin 11.1. Potassium 4.1, BUN 16, and creatinine 0.6. Albumin 2.8. IMPRESSION: 1. Acute pancreatitis. 2. Leukocytosis. 3. Noncardiac chest pain in the setting of known CAD and prior coronary stent. 4. Accelerated hypertension. 5. Moderate protein-calorie malnutrition. 6. Worsening leukocytosis. 7. Permanent pacemaker. PLAN: 1. Broaden antibiotic spectrum. 2. Check chest x-ray. 3. Decrease intravenous fluids. 4. Continue beta-pedro pablo. 5. Titrate angiotensin-converting enzyme inhibitor. 6. As needed clonidine for blood pressure spike. 7. Follow up pancreatic enzymes and ultrasound. Edgar Oscar M.D. DR: GERBER JOB#: [id number] CC: MISTY
--- NOTE | 2016-11-25 16:54 | Infectious Diseases Prog Note ---
Assessment/Plan Assessment/Plan Full consult dictated: A) 1) sepsis, leukocytosis, pancreatitis, post-op fluid vs abscess on ct scan abdomen, doubt uti as sepsis source 2) s/p appendectomy 3) pmh noted 4) allergies - negative P) 1) vancomycin and zosyn 2) check bc, labs, check uc 3) continue treatment per Dr. Kemp and consultants 4) thank you Subjective Allergies: Coded Allergies: No Known Allergies (Unverified , 11/23/16) Objective Vital Signs Last 24 Hour Vital Signs Date Time Temp Pulse Resp B/P Pulse Ox O2 Delivery O2 Flow Rate FiO2 11/25/16 16:00 98.8 82 19 133/52 95 Room Air 11/25/16 15:51 96.0 11/25/16 12:00 96.0 77 17 118/69 94 Room Air 11/25/16 12:00 80 11/25/16 10:16 97 147/66 11/25/16 10:16 147/66 11/25/16 08:00 99.1 89 20 147/66 95 Room Air 11/25/16 08:00 97 11/25/16 05:06 179/83 11/25/16 04:11 97.0 102 20 162/77 Room Air 11/25/16 04:00 98 11/25/16 00:07 96.8 100 20 166/79 95 Room Air 11/25/16 00:00 101 11/24/16 21:12 183/113 11/24/16 20:50 102 183/113 11/24/16 20:25 97.5 99 20 168/70 96 Room Air 11/24/16 20:00 101 11/24/16 17:50 164/67 Height (Feet): 5 Height (Inches): 2.00 Weight (Pounds): 149 Microbiology Date/Time Source Procedure Growth Status 11/23/16 14:40 Nasal Nares MRSA Culture - Final NO METHICILLIN RESISTANT STAPH AUREUS... Complete 11/23/16 16:40 Urine,Clean Catch Urine Culture - Final Mixed Urogenital Contaminants Complete 11/23/16 14:40 Rectum VRE Culture - Final NO VANCOMYCIN RESISTANT ENTEROCOCCUS ... Complete Laboratory Tests Test 11/25/16 07:15 White Blood Count 17.7 K/UL (4.8-10.8) #H Red Blood Count 3.75 M/UL (4.20-5.40) L Hemoglobin 11.1 G/DL (12.0-16.0) L Hematocrit 32.7 % (37.0-47.0) L Mean Corpuscular Volume 87 FL (80-99) Mean Corpuscular Hemoglobin 29.7 PG (27.0-31.0) Mean Corpuscular Hemoglobin Concent 34.1 G/DL (32.0-36.0) Red Cell Distribution Width 14.0 % (11.6-14.8) Platelet Count 369 K/UL (150-450) Mean Platelet Volume 5.1 FL (6.5-10.1) L Neutrophils (%) (Auto) % (45.0-75.0) Lymphocytes (%) (Auto) % (20.0-45.0) Monocytes (%) (Auto) % (1.0-10.0) Eosinophils (%) (Auto) % (0.0-3.0) Basophils (%) (Auto) % (0.0-2.0) Differential Total Cells Counted 100 Neutrophils % (Manual) 86 % (45-75) H Lymphocytes % (Manual) 8 % (20-45) L Monocytes % (Manual) 6 % (1-10) Eosinophils % (Manual) 0 % (0-3) Basophils % (Manual) 0 % (0-2) Band Neutrophils 0 % (0-8) Platelet Estimate Adequate Platelet Morphology Normal Hypochromasia 1+ Anisocytosis 1+ Sodium Level 137 mEQ/L (135-145) Potassium Level 4.1 mEQ/L (3.4-4.9) Chloride Level 98 mEQ/L (98-107) Carbon Dioxide Level 29 mEQ/L (20-30) Anion Gap 10 (5-15) Blood Urea Nitrogen 16 mg/dL (7-23) Creatinine 0.6 mg/dL (0.5-0.9) Estimat Glomerular Filtration Rate mL/min (>60) Glucose Level 163 mg/dL (74-106) H Calcium Level 9.0 mg/dL (8.6-10.2) Total Bilirubin 0.5 mg/dL (0.0-1.2) Aspartate Amino Transf (AST/SGOT) 11 U/L (5-40) Alanine Aminotransferase (ALT/SGPT) 5 U/L (3-33) Alkaline Phosphatase 89 U/L (35-104) Total Protein 6.1 g/dL (6.6-8.7) L Albumin 2.7 g/dL (3.5-5.2) L Globulin 3.4 g/dL Albumin/Globulin Ratio 0.7 (1.0-2.7) L Current Medications Medications (Trade) Dose Ordered Sig/Nicole Route PRN Reason Start Time Stop Time Status Last Admin Dose Admin Acetaminophen (Tylenol Peds) 320 mg Q6H PRN ORAL Mild Pain/Temp > 100.5 11/23/16 15:45 12/23/16 15:44 Acetaminophen/ Hydrocodone Bitart ([place] 5/325) 1 tab Q6H PRN ORAL MODERATE TO SEVERE PAIN 11/23/16 16:30 11/30/16 16:29 11/24/16 00:00 Benazepril HCl 20 mg 20 mg BID ORAL 11/25/16 18:00 12/25/16 17:59 Carvedilol (Coreg) 25 mg EVERY 12 HOURS ORAL 11/23/16 21:00 12/23/16 20:59 11/25/16 10:16 Clonidine HCl (Catapres TTS-3) 1 patch We@0900 PRN TDERMAL SBP>180 11/24/16 10:00 12/24/16 09:59 11/24/16 21:12 Clonidine HCl (Catapres) 0.1 mg Q8H PRN ORAL SBP > 170 11/23/16 15:45 12/23/16 15:44 11/25/16 05:06 Clopidogrel Bisulfate (Plavix) 75 mg DAILY ORAL 11/24/16 09:00 12/24/16 08:59 11/25/16 10:16 Clotrimazole 1 applic 1 applic EVERY 12 HOURS TOPIC 11/24/16 21:00 12/24/16 20:59 11/25/16 10:16 Dextrose/ Electrolytes (D5 0.45%NS W/ KCl 20mEq) 1,000 ml @ 75 mls/hr [id number] IV 11/25/16 12:30 12/25/16 12:29 11/25/16 15:21 Morphine Sulfate (Morphine Sulfate) 2 mg Q3HR PRN IVP Moderate Pain (Pain Scale 4-6) 11/24/16 09:30 5/10/17 09:29 11/25/16 15:21 Morphine Sulfate (Morphine Sulfate) 4 mg Q3HR PRN IVP Severe Breakthru Pain (>7) 11/24/16 09:15 12/01/16 09:14 11/24/16 14:54 Nitroglycerin (Ntg) 0.4 mg Q5MIN X 3 DOSES PRN SL CHEST PAIN 11/23/16 15:45 12/23/16 15:44 Ondansetron HCl (Zofran) 4 mg Q4H PRN IVP Nausea & Vomiting 11/24/16 00:15 12/24/16 00:14 11/25/16 03:22 Piperacillin Sod/ Tazobactam Sod/ Dextrose (Zosyn/D5W) 110 ml @ 27.5 mls/hr EVERY 8 HOURS IVPB 11/25/16 14:00 11/30/16 13:59 11/25/16 15:21 Vancomycin HCl 1 ea 1 ea DAILY PRN MISC Per rx protocol 11/25/16 11:45 12/25/16 11:44 Vancomycin HCl/ Dextrose (Vancomycin/D5W) 275 ml @ 183.708 mls/hr Q12H IVPB 11/26/16 04:00 12/01/16 03:59 AKILAH ALVARES November 25, 2016 16:54
[2016-11-25] MEDS: Morphine Sulfate 4mg/ml Inj IVP PRN (20:03)
[2016-11-25 20:27] VITALS: BP 148/53
[2016-11-26 00:14] VITALS: BP 111/45
--- NOTE | 2016-11-26 01:38 | Consultation ---
DATE OF CONSULTATION: 11/25/2016 INFECTIOUS DISEASE CONSULTATION: ATTENDING PHYSICIAN: Ritchie Kemp M.D. REASON FOR CONSULTATION: Leukocytosis and sepsis. CHIEF COMPLAINT: The patient's chief complaint coming in to the hospital is chest pain radiating into jaw and emesis and also elevated heart rate. HISTORY OF PRESENT ILLNESS: This is a 76-year-old female with a history of recent appendectomy. The patient was admitted to the [facility] for chest pain and tachyarrhythmia. The patient had appendicitis and hernia repair last week and had surgery. She had a CT scan of the abdomen and pelvis abdominal pain per the records. It was noted that she had postsurgical changes and 7.8 x 2.3 x 4.6 cm phlegmon or fluid collection in the right lower quadrant, which is probably routine postoperative fluid, but an abscess cannot be excluded. The patient had leukocytosis and Infectious Disease consultation requested. The patient also is noted to have pancreatitis with elevated amylase and lipase. Infectious Disease consultation was requested because of the possibility of sepsis and leukocytosis. Case was communicated with Dr. Kemp and also Dr. Edgar Oscar, cardiology. The patient has been started on vancomycin and Zosyn. Blood cultures were noted. Urinalysis was mildly positive, 5 to 10 white blood cells. Chest x-ray was negative. The patient is also being followed by Surgery. MAR was noted. Orders were noted. Notes were reviewed. REVIEW OF SYSTEMS: Constitutional: The patient has generalized weakness and fatigue, but she does not speak [place], so further history. Head And Neck: She has no fever or chills. No obvious head pain or neck pain. Pulmonary: No congestion or shortness of breath noted. Cardiac: No pressors. She came in with, looks like chest pain. Gastrointestinal: No significant abdominal pain, but she did get morphine. No nausea, vomiting, or diarrhea. GI review of systems was discussed with nursing staff. Genitourinary: No Gandhi. Neurologic: No seizures. Skin: No rash. PAST MEDICAL HISTORY: History of falling. The patient has a past medical history of recent appendicitis and hernia repair surgery this was last week. History of coronary artery disease. History of pacemaker, hypertension, and diabetes. She has a history of coronary stents, hyperlipidemia, angina, and history of postoperative cellulitis. ALLERGIES: No known drug allergies. FAMILY HISTORY: Noncontributory. SOCIAL HISTORY: Negative for smoking, alcohol, or drug abuse. MEDICATIONS: Upon reviewing the MAR, the patient is on the following medications: Vancomycin, Zosyn, Lotensin (benazepril), , morphine, Plavix, Zofran, and carvedilol. She is on clonidine or Catapres also, nitroglycerin, Tylenol, and [place]. Please see medications in medical order and past medical history in medical order. PHYSICAL EXAMINATION: VITAL SIGNS: Temperature 98.8 degrees, pulse rate 82, respiratory rate 19, blood pressure 130/52, saturation 95%, and heart rate 102. GENERAL: Alert and responsive, in no acute distress. HEAD AND NECK: Oral exam, no thrush. Eye exam, no icterus. Neck is supple. No JVD. No sinus tenderness. Normocephalic. No facial droop. No neck stiffness. HEART: Regular. No gallop or murmur. ABDOMEN: Soft. Positive bowel sounds. Incision site is clean and dry. No obvious abdominal pain. LUNGS: Clear bilaterally. No rhonchi, rales, or wheezing. SKIN: No rash or dermatitis. MUSCULOSKELETAL: No effusions or contractures. PERIPHERAL VASCULAR: No cyanosis or gangrene. GENITOURINARY: Without Gandhi. LINES: Line sites without phlebitis. NEUROLOGIC: Generalized weakness. Responsive. LABORATORY DATA: As follows: The patient's white count is 17.7 and hemoglobin 11.1. Creatinine is 0.6. UA has 5 to 10 white blood cells, 1+ leukocyte esterase, and mild bacteria. Blood and urine cultures are pending. Of note also, amylase and lipase are elevated. Lipase . Amylase 802. IMAGING STUDIES: Chest x-ray showed no acute disease. CT scan of the abdomen and pelvis showed the postsurgical changes and the possible phlegmon, which is probably postoperative fluid, but abscess cannot be excluded. ASSESSMENT AND PLAN: 1. The patient has possible sepsis, leukocytosis, heart rate over 100, now it is improved. She has history of tachyarrhythmias. The patient's sepsis source could be pancreatitis, which can cause sepsis and leukemoid reaction. Must consider possibility of urinary tract infection even though the urinalysis only have 5 to 10 white blood cells. I do not think this is the source of possible sepsis. We will check blood and urine cultures. Continue vancomycin and Zosyn. With regards to CT findings, it could be postsurgical fluid; however, must consider abscess if the patient's leukocytosis persists and is being followed by Surgery. Check blood and urine culture. Check followup labs. Also, there is no diarrhea to C. difficile at this time. 2. The patient has history of diabetes. 3. Hypertension. 4. Recent abdominal surgery for hernia repair and appendicitis. 5. Coronary artery disease. 6. Stents. 7. Pacemaker. 8. Chest pain. The patient has been seen by Cardiology. At this time, it is noncardiac chest pain. 9. Diabetes and hypertension treatment per Primary and Cardiology. 10. Hyperlipidemia. 11. Anemia. 12. Allergies are negative. 13. Case was discussed with Dr. Kemp. 14. Case was discussed with Dr. Oscar. 15. Social history negative. 16. MAR was noted. 17. Case was discussed with RN. 18. Family history is noncontributory. 19. Continue treatment per primary consultants. 20. Notes and records were reviewed. Stacy Sarah M.D. DR: ANDREW JOB#: [id number] CC:
[2016-11-26] MEDS: Morphine Sulfate 4mg/ml Inj IVP PRN ×2 (02:07→05:23)
[2016-11-26 03:55] VITALS: BP 112/49
[2016-11-26] MEDS: Vancomycin 750mg/D5W 275ml IVPB SCH ×4 (05:05→17:11)
[2016-11-26] MEDS: D5 1/2NS w/KCl 20mEq 1,000 ML IV SCH ×2 (05:16→19:05)
[2016-11-26] MEDS: Piperacillin/Tazobactam 3.375 GM in D5W 110 ML IVPB SCH ×3 (06:55→22:29)
[2016-11-26 08:09] LABS: BASOPHILS % (AUTO) 0.2 % (0.0-2.0); EOSINOPHILS % (AUTO) 1.2 % (0.0-3.0); LYMPHOCYTES % (AUTO) 9.6 % (20.0-45.0); MEAN CORPUSCULAR HEMOGLOBIN 27.4 PG (27.0-31.0); MEAN CORPUSCULAR HGB CONC 32.4 G/DL (32.0-36.0); MEAN CORPUSCULAR VOLUME 85 FL (80-99); MEAN PLATELET VOLUME 5.5 FL (6.5-10.1); MONOCYTES % (AUTO) 6.8 % (1.0-10.0); NEUTROPHILS % (AUTO) 82.1 % (45.0-75.0); PLATELET COUNT 261 K/UL (150-450); RED BLOOD COUNT 3.03 M/UL (4.20-5.40); RED CELL DISTRIBUTION WIDTH 14.3 % (11.6-14.8); WHITE BLOOD COUNT 12.4 K/UL (4.8-10.8)
[2016-11-26 08:35] LABS: ALANINE AMINOTRANSFERASE 5 U/L (3-33); ALBUMIN/GLOBULIN RATIO 0.7 (1.0-2.7); ANION GAP 10 (5-15); ASPARTATE AMINO TRANSFERASE 9 U/L (5-40); CALCIUM 8.3 mg/dL (8.6-10.2); CARBON DIOXIDE 28 mEQ/L (20-30); CHLORIDE 98 mEQ/L (98-107); CREATININE 0.7 mg/dL (0.5-0.9); HEMOLYSIS 5; POTASSIUM 4.1 mEQ/L (3.4-4.9); SODIUM 136 mEQ/L (135-145); TOTAL PROTEIN 5.2 g/dL (6.6-8.7)
[2016-11-26 08:37] VITALS: BP 131/52
[2016-11-26 08:42] LABS: MAGNESIUM 1.6 mg/dL (1.7-2.5)
[2016-11-26] MEDS: Benazepril 10mg tab ORAL SCH ×2 (09:00→17:10)
[2016-11-26] MEDS: Carvedilol 25mg Tab ORAL SCH ×2 (09:01→22:28)
--- NOTE | 2016-11-26 11:20 | General Surgery Progress Note ---
General Surgery-Progress Note Subjective Symptoms: improved, pain same, tolerating diet, passing flatus, BM Objective Last 24 Hour Vital Signs Date Time Temp Pulse Resp B/P Pulse Ox O2 Delivery O2 Flow Rate FiO2 11/26/16 09:01 79 131/52 11/26/16 09:00 131/52 11/26/16 08:37 98.8 79 20 131/52 95 Room Air 11/26/16 08:00 80 11/26/16 03:55 97.5 77 20 112/49 96 Room Air 11/26/16 03:52 78 11/26/16 00:14 98.0 72 20 111/45 95 11/25/16 23:47 73 11/25/16 22:05 81 148/53 11/25/16 20:27 97.0 81 20 148/53 Room Air 11/25/16 19:05 78 11/25/16 18:14 133/52 11/25/16 16:00 98.8 82 19 133/52 95 Room Air 11/25/16 16:00 80 11/25/16 15:51 96.0 11/25/16 12:00 96.0 77 17 118/69 94 Room Air 11/25/16 12:00 80 I&O Intake and Output 11/25/16 11/26/16 19:00 07:00 Intake Total 532.5 ml 750 ml Balance 532.5 ml 750 ml Intake Oral 150 ml IV Total 382.5 ml 750 ml # Voids 2 # Bowel Movements 1 Dressing: dry Wound: clean, dry, intact Drains: none Cardiovascular: RSR Respiratory: clear Abdomen: soft, distended, non-tender, present bowel sounds Extremities: edema, no tenderness, no cyanosis Laboratory Tests Test 11/26/16 06:00 White Blood Count 12.4 K/UL (4.8-10.8) H Red Blood Count 3.03 M/UL (4.20-5.40) L Hemoglobin 8.3 G/DL (12.0-16.0) L Hematocrit 25.7 % (37.0-47.0) L Mean Corpuscular Volume 85 FL (80-99) Mean Corpuscular Hemoglobin 27.4 PG (27.0-31.0) Mean Corpuscular Hemoglobin Concent 32.4 G/DL (32.0-36.0) Red Cell Distribution Width 14.3 % (11.6-14.8) Platelet Count 261 K/UL (150-450) Mean Platelet Volume 5.5 FL (6.5-10.1) L Neutrophils (%) (Auto) 82.1 % (45.0-75.0) H Lymphocytes (%) (Auto) 9.6 % (20.0-45.0) L Monocytes (%) (Auto) 6.8 % (1.0-10.0) Eosinophils (%) (Auto) 1.2 % (0.0-3.0) Basophils (%) (Auto) 0.2 % (0.0-2.0) Sodium Level 136 mEQ/L (135-145) Potassium Level 4.1 mEQ/L (3.4-4.9) Chloride Level 98 mEQ/L (98-107) Carbon Dioxide Level 28 mEQ/L (20-30) Anion Gap 10 (5-15) Blood Urea Nitrogen 13 mg/dL (7-23) Creatinine 0.7 mg/dL (0.5-0.9) Estimat Glomerular Filtration Rate mL/min (>60) Glucose Level 150 mg/dL (74-106) H Calcium Level 8.3 mg/dL (8.6-10.2) L Magnesium Level 1.6 mg/dL (1.7-2.5) L Total Bilirubin 0.6 mg/dL (0.0-1.2) Aspartate Amino Transf (AST/SGOT) 9 U/L (5-40) Alanine Aminotransferase (ALT/SGPT) 5 U/L (3-33) Alkaline Phosphatase 74 U/L (35-104) Pro-B-Type Natriuretic Peptide 341 pg/mL (0-450) Total Protein 5.2 g/dL (6.6-8.7) L Albumin 2.2 g/dL (3.5-5.2) L Globulin 3.0 g/dL Albumin/Globulin Ratio 0.7 (1.0-2.7) L Plan Problems: (1) Abdominal pain Assessment & Plan: 76F recently had lap hernia repair and appendectomy and then presented with abdominal pain, nausea, emesis. CT scan with peripanc inflammation suggestive of pancreatitis. Flaquita/Lip elevated. currently afebrile , HD stable, exam improved, no n/v. leukocytosis improving. Dx: Acute pancreatitis -abdominal ultrasound to evaluate for gallstones and gallbladder etiology -diet as tolerated -conservative medical management of acute pancreatitis -surgical wounds currently look stable without signs of infection. abdominal exam stable. -will continue to follow with you. thank you. Douglas Lee November 26, 2016 11:20
[2016-11-26 11:57] VITALS: BP 114/51
--- NOTE | 2016-11-26 12:38 | Diagnostic Imaging Report ---
Indications: Chest pain and shortness of breath Technique: Portable AP chest Findings: Comparison: 11/23/2016 Cardiac silhouette remains normal in size. Pulmonary vasculature remains within normal limits. Inspiratory effort remains suboptimal. Linear density persists in the lateral left lung base. Visualized portions of Lungs and pleura remain otherwise clear. Left chest wall pacemaker, thoracic vertebral osteophytes again noted.. IMPRESSION: Persistent subsegmental atelectasis versus scarring versus nodule left lung base No evidence of acute disease, unchanged Stable chronic changes as described
--- NOTE | 2016-11-26 12:58 | Diagnostic Imaging Report ---
Indication:Abdominal pain Technique: Grayscale and duplex Doppler imaging of the abdomen performed. Comparison: None Findings: The liver is prominent measuring about 19 cm. CBD is 6 mm which is normal. There is no intrahepatic biliary ductal dilatation seen. Spleen is normal in size. There is trace free fluid likely associated with pancreatitis, which is more easily appreciated on recent CT. 3.7 cm right renal cyst demonstrated. There is no hydronephrosis. Gallbladder is unremarkable. Pancreas and aorta are largely obscured by bowel gas. Impression: No evidence of biliary ductal dilatation. CBD is 6 mm. Mild free fluid likely associated with pancreatitis. Direct visualization of the pancreas limited on this study due to bowel gas. Right renal cyst.
--- NOTE | 2016-11-26 13:30 | General Progress Note ---
Assessment/Plan Assessment/Plan continued abdominal pain, requires morphine tolerates clears lab better, WBC down repeat amylase pdg cont rx 1. Chest pain due to acute coronary syndrome, known CAD, stent 2. no myocardial infarction. 3. Hypertension. 4. Mild diabetes. 5. Appendectomy and hernia repair. 6. Leukocytosis 7. Pancreatitis Subjective Constitutional: Denies: fever Gastrointestinal/Abdominal: Reports: abdominal pain, Denies: vomiting Allergies: Coded Allergies: No Known Allergies (Unverified , 11/23/16) Objective Last 24 Hour Vital Signs Date Time Temp Pulse Resp B/P Pulse Ox O2 Delivery O2 Flow Rate FiO2 11/26/16 12:00 71 11/26/16 11:57 98.2 74 20 114/51 94 Room Air 11/26/16 09:01 79 131/52 11/26/16 09:00 131/52 11/26/16 08:37 98.8 79 20 131/52 95 Room Air 11/26/16 08:00 80 11/26/16 03:55 97.5 77 20 112/49 96 Room Air 11/26/16 03:52 78 11/26/16 00:14 98.0 72 20 111/45 95 11/25/16 23:47 73 11/25/16 22:05 81 148/53 11/25/16 20:27 97.0 81 20 148/53 Room Air 11/25/16 19:05 78 11/25/16 18:14 133/52 11/25/16 16:00 98.8 82 19 133/52 95 Room Air 11/25/16 16:00 80 11/25/16 15:51 96.0 Intake and Output 11/25/16 11/26/16 19:00 07:00 Intake Total 532.5 ml 750 ml Balance 532.5 ml 750 ml Intake Oral 150 ml IV Total 382.5 ml 750 ml # Voids 2 # Bowel Movements 1 Laboratory Tests 11/26/16 06:00: White Blood Count 12.4H, Red Blood Count 3.03L, Hemoglobin 8.3L, Hematocrit 25.7L, Mean Corpuscular Volume 85, Mean Corpuscular Hemoglobin 27.4, Mean Corpuscular Hemoglobin Concent 32.4, Red Cell Distribution Width 14.3, Platelet Count 261, Mean Platelet Volume 5.5L, Neutrophils (%) (Auto) 82.1H, Lymphocytes (%) (Auto) 9.6L, Monocytes (%) (Auto) 6.8, Eosinophils (%) (Auto) 1.2, Basophils (%) (Auto) 0.2, Sodium Level 136, Potassium Level 4.1, Chloride Level 98, Carbon Dioxide Level 28, Anion Gap 10, Blood Urea Nitrogen 13, Creatinine 0.7, Estimat Glomerular Filtration Rate , Glucose Level 150H, Calcium Level 8.3L , Magnesium Level 1.6L, Total Bilirubin 0.6, Aspartate Amino Transf (AST/SGOT) 9 , Alanine Aminotransferase (ALT/SGPT) 5, Alkaline Phosphatase 74, Pro-B-Type Natriuretic Peptide 341, Total Protein 5.2L, Albumin 2.2L, Globulin 3.0, Albumin /Globulin Ratio 0.7L Height (Feet): 5 Height (Inches): 2.00 Weight (Pounds): 149 General Appearance: no apparent distress Cardiovascular: normal rate Respiratory/Chest: lungs clear Abdomen: soft, tender MAY MARSH November 26, 2016 13:30
[2016-11-26] MEDS: Morphine Sulfate 2mg/ml Inj IVP PRN ×3 (14:39→23:59)
[2016-11-26] MEDS ORDERED: Tubing IV Secondary IV ONE (15:25)
[2016-11-26 16:04] VITALS: BP 114/49
--- NOTE | 2016-11-26 18:24 | Infectious Diseases Prog Note ---
Assessment/Plan Assessment/Plan ASSESSMENT AND PLAN: 1. sepsis, leukocytosis, pancreatitis, ? abscess, s/p abdominal surgery, uc negative - leukocytosis improved - continue zosyn and vancomycin - check labs - surgery f/u, d/w Dr. Reynolds yesterday about fluid collection and just observation for now 2. The patient has history of diabetes. 3. Hypertension. 4. Recent abdominal surgery for hernia repair and appendicitis. 5. Coronary artery disease. 6. Stents. 7. Pacemaker. 8. Chest pain. The patient has been seen by Cardiology. At this time, it is noncardiac chest pain. 9. Diabetes and hypertension treatment per Primary and Cardiology. 10. Hyperlipidemia. 11. Anemia. 12. Allergies are negative. 13. Case was discussed with Dr. Kemp. 14. Case was discussed with Dr. Oscar. 15. Social history negative. 16. MAR was noted. 17. Case was discussed with RN. 18. Family history is noncontributory. 19. Continue treatment per primary consultants. 20. Notes and records were reviewed. Subjective Constitutional: Denies: fever HEENT: Denies: congestion Respiratory: Denies: shortness of breath Cardiovascular: Denies: chest pain Gastrointestinal/Abdominal: Denies: diarrhea, nausea, vomiting Neurologic: Denies: headache Psychiatric: Denies: depression Skin: Denies: rash Hematologic: Denies: bleeding Musculoskeletal: Denies: pain Allergies: Coded Allergies: No Known Allergies (Unverified , 11/23/16) Objective Vital Signs Last 24 Hour Vital Signs Date Time Temp Pulse Resp B/P Pulse Ox O2 Delivery O2 Flow Rate FiO2 11/26/16 17:10 114/49 11/26/16 16:04 98.0 73 20 114/49 96 Room Air 11/26/16 15:09 98.2 11/26/16 12:00 71 11/26/16 11:57 98.2 74 20 114/51 94 Room Air 11/26/16 09:01 79 131/52 11/26/16 09:00 131/52 11/26/16 08:37 98.8 79 20 131/52 95 Room Air 11/26/16 08:00 80 11/26/16 03:55 97.5 77 20 112/49 96 Room Air 11/26/16 03:52 78 11/26/16 00:14 98.0 72 20 111/45 95 11/25/16 23:47 73 11/25/16 22:05 81 148/53 11/25/16 20:27 97.0 81 20 148/53 Room Air 11/25/16 19:05 78 Height (Feet): 5 Height (Inches): 2.00 Weight (Pounds): 149 General Appearance: no acute distress HEENT: normocephalic, atraumatic, anicteric, mucous membranes moist, PERRL, EOMI, pharynx normal, supple, no JVD Respiratory/Chest: lungs clear, normal breath sounds, no respiratory distress, no accessory muscle use Cardiovascular: normal rate, regular rhythm, no gallop/murmur, no JVD Abdomen: normal bowel sounds, soft, non tender, no organomegaly, non distended Genitourinary: other - no monique Extremities: no cyanosis Skin: no rash Neurologic/Psychiatric: tissue technician II-XII grossly normal, alert, oriented x 3, responsive Lymphatic: no neck adenopathy Musculoskeletal: no effusion Objective Chest x-ray - atx Ct scan: Impression: Postsurgical changes, as described, with evidence of recent laparoscopic appendectomy. There is a 7.8 x 2.3 x 4.6 cm phlegmon or fluid collection within the right lower quadrant wound. This is probably routine postoperative fluid, but abscess collection not completely excludable. Equivocal slight prominence of the pancreas. There is considerable infiltration of the peripancreatic and upper abdominal fat as well as fluid/thickening of Gerota 's fascia bilaterally. While possibly related to the recent surgery, distribution of this is not typical for such, and raises concern for acute pancreatitis. Correlation with laboratory findings is recommended. Trace ascites fluid. Possibly related to recent surgery or pancreatic disease. Somewhat high attenuation indicates this fluid could be bloody Slight wall thickening of the duodenum, could be related to adjacent pancreatic disease or could indicate mild duodenitis US abdomen: Impression: No evidence of biliary ductal dilatation. CBD is 6 mm. Mild free fluid likely associated with pancreatitis. Direct visualization of the pancreas limited on this study due to bowel gas. Right renal cyst. Microbiology Date/Time Source Procedure Growth Status 11/23/16 14:40 Nasal Nares MRSA Culture - Final NO METHICILLIN RESISTANT STAPH AUREUS... Complete 11/23/16 16:40 Urine,Clean Catch Urine Culture - Preliminary NO GROWTH AFTER 24 HOURS Resulted 11/23/16 14:40 Rectum VRE Culture - Final NO VANCOMYCIN RESISTANT ENTEROCOCCUS ... Complete Laboratory Tests Test 11/26/16 06:00 White Blood Count 12.4 K/UL (4.8-10.8) H Red Blood Count 3.03 M/UL (4.20-5.40) L Hemoglobin 8.3 G/DL (12.0-16.0) L Hematocrit 25.7 % (37.0-47.0) L Mean Corpuscular Volume 85 FL (80-99) Mean Corpuscular Hemoglobin 27.4 PG (27.0-31.0) Mean Corpuscular Hemoglobin Concent 32.4 G/DL (32.0-36.0) Red Cell Distribution Width 14.3 % (11.6-14.8) Platelet Count 261 K/UL (150-450) Mean Platelet Volume 5.5 FL (6.5-10.1) L Neutrophils (%) (Auto) 82.1 % (45.0-75.0) H Lymphocytes (%) (Auto) 9.6 % (20.0-45.0) L Monocytes (%) (Auto) 6.8 % (1.0-10.0) Eosinophils (%) (Auto) 1.2 % (0.0-3.0) Basophils (%) (Auto) 0.2 % (0.0-2.0) Sodium Level 136 mEQ/L (135-145) Potassium Level 4.1 mEQ/L (3.4-4.9) Chloride Level 98 mEQ/L (98-107) Carbon Dioxide Level 28 mEQ/L (20-30) Anion Gap 10 (5-15) Blood Urea Nitrogen 13 mg/dL (7-23) Creatinine 0.7 mg/dL (0.5-0.9) Estimat Glomerular Filtration Rate mL/min (>60) Glucose Level 150 mg/dL (74-106) H Calcium Level 8.3 mg/dL (8.6-10.2) L Magnesium Level 1.6 mg/dL (1.7-2.5) L Total Bilirubin 0.6 mg/dL (0.0-1.2) Aspartate Amino Transf (AST/SGOT) 9 U/L (5-40) Alanine Aminotransferase (ALT/SGPT) 5 U/L (3-33) Alkaline Phosphatase 74 U/L (35-104) Pro-B-Type Natriuretic Peptide 341 pg/mL (0-450) Total Protein 5.2 g/dL (6.6-8.7) L Albumin 2.2 g/dL (3.5-5.2) L Globulin 3.0 g/dL Albumin/Globulin Ratio 0.7 (1.0-2.7) L Current Medications Medications (Trade) Dose Ordered Sig/Nicole Route PRN Reason Start Time Stop Time Status Last Admin Dose Admin Acetaminophen (Tylenol Peds) 320 mg Q6H PRN ORAL Mild Pain/Temp > 100.5 11/23/16 15:45 12/23/16 15:44 Acetaminophen/ Hydrocodone Bitart ([place] 5/325) 1 tab Q6H PRN ORAL MODERATE TO SEVERE PAIN 11/23/16 16:30 11/30/16 16:29 11/24/16 00:00 Benazepril HCl 20 mg 20 mg BID ORAL 11/25/16 18:00 12/25/16 17:59 11/26/16 17:10 Carvedilol (Coreg) 25 mg EVERY 12 HOURS ORAL 11/23/16 21:00 12/23/16 20:59 11/26/16 09:01 Clonidine HCl (Catapres TTS-3) 1 patch We@0900 PRN TDERMAL SBP>180 11/24/16 10:00 12/24/16 09:59 11/24/16 21:12 Clonidine HCl (Catapres) 0.1 mg Q8H PRN ORAL SBP > 170 11/23/16 15:45 12/23/16 15:44 11/25/16 05:06 Clopidogrel Bisulfate (Plavix) 75 mg DAILY ORAL 11/24/16 09:00 12/24/16 08:59 11/26/16 08:59 Clotrimazole 1 applic 1 applic EVERY 12 HOURS TOPIC 11/24/16 21:00 12/24/16 20:59 11/26/16 09:01 Dextrose/ Electrolytes (D5 0.45%NS W/ KCl 20mEq) 1,000 ml @ 75 mls/hr [id number] IV 11/25/16 12:30 12/25/16 12:29 11/26/16 05:16 Morphine Sulfate (Morphine Sulfate) 2 mg Q3HR PRN IVP Moderate Pain (Pain Scale 4-6) 11/24/16 09:30 12/01/16 09:29 11/26/16 14:39 Morphine Sulfate (Morphine Sulfate) 4 mg Q3HR PRN IVP Severe Breakthru Pain (>7) 11/24/16 09:15 12/01/16 09:14 11/26/16 05:23 Nitroglycerin (Ntg) 0.4 mg Q5MIN X 3 DOSES PRN SL CHEST PAIN 11/23/16 15:45 12/23/16 15:44 Ondansetron HCl (Zofran) 4 mg Q4H PRN IVP Nausea & Vomiting 11/24/16 00:15 12/24/16 00:14 11/25/16 03:22 Piperacillin Sod/ Tazobactam Sod/ Dextrose (Zosyn/D5W) 110 ml @ 27.5 mls/hr EVERY 8 HOURS IVPB 11/25/16 14:00 11/30/16 13:59 11/26/16 14:32 Vancomycin HCl 1 ea 1 ea DAILY PRN MISC Per rx protocol 11/25/16 11:45 12/25/16 11:44 Vancomycin HCl/ Dextrose (Vancomycin/D5W) 275 ml @ 183.708 mls/hr Q12H IVPB 11/26/16 04:00 12/01/16 03:59 11/26/16 17:11 AKILAH ALVARES November 26, 2016 18:24
[2016-11-26 20:02] VITALS: BP 131/58
[2016-11-27] VITALS: BP 123/58
--- NOTE | 2016-11-27 01:28 | Progress Note ---
DATE: 11/26/2016 CARDIOLOGY PROGRESS NOTE: SUBJECTIVE: The patient continues to have abdominal pain. She is on clear liquids. She is on morphine for pain control. She has not had any chest pain or shortness of breath. OBJECTIVE: VITAL SIGNS: Blood pressure 114/51, pulse 74, respiratory rate 20, and afebrile. NECK: Supple. LUNGS: Clear. CARDIAC: Regular rhythm and rate. Normal S1, S2 with a fourth heart sound. ABDOMEN: Soft and tender in the midepigastric region. No guarding or rebound. EXTREMITIES: Without edema or cyanosis. LABORATORY DATA: White count 12.4 and hemoglobin 8.3. Sodium 136, potassium 4.1, BUN 13, creatinine 0.7, and glucose 150. Magnesium 1.6. Albumin 2.2. IMPRESSION: 1. Acute pancreatitis. 2. Noncardiac chest pain in the setting of known CAD with history of coronary stent. 3. Anemia. 4. Severe protein-calorie malnutrition. 5. Hypomagnesemia. 6. Accelerated hypertension, now controlled and is likely related to acute pain. 7. Permanent pacemaker. PLAN: Antibiotics. Hydration. Continue beta blockade. Titrate angiotensin-converting enzyme inhibitor. Discontinue topical clonidine. IV magnesium replacement. Edgar Oscar M.D. DR: Wendi JOB#: [id number] CC: MISTY
[2016-11-27 02:58] LABS: BASOPHILS % (AUTO) 0.4 % (0.0-2.0); EOSINOPHILS % (AUTO) 2.2 % (0.0-3.0); MEAN CORPUSCULAR HEMOGLOBIN 27.1 PG (27.0-31.0); MEAN CORPUSCULAR HGB CONC 32.2 G/DL (32.0-36.0); MEAN CORPUSCULAR VOLUME 84 FL (80-99); MEAN PLATELET VOLUME 5.4 FL (6.5-10.1); MONOCYTES % (AUTO) 6.6 % (1.0-10.0); NEUTROPHILS % (AUTO) 80.8 % (45.0-75.0); PLATELET COUNT 264 K/UL (150-450); RED BLOOD COUNT 3.16 M/UL (4.20-5.40)
[2016-11-27 03:17] LABS: AMYLASE 46 U/L (10-110); LIPASE 19 U/L (< 60)
[2016-11-27] MEDS ORDERED: Vancomycin 1gm inj IVPB ONE (03:42)
[2016-11-27 04:00] VITALS: BP 118/58
[2016-11-27] MEDS: Vancomycin 1gm/D5W 275ml IVPB SCH ×4 (04:05→17:14)
[2016-11-27] MEDS: Morphine Sulfate 2mg/ml Inj IVP PRN (04:12)
[2016-11-27] MEDS: Piperacillin/Tazobactam 3.375 GM in D5W 110 ML IVPB SCH ×3 (05:54→22:13)
[2016-11-27 07:48] VITALS: BP 118/45
[2016-11-27] MEDS: Benazepril 10mg tab ORAL SCH ×2 (08:24→17:16)
[2016-11-27] MEDS: Carvedilol 25mg Tab ORAL SCH ×2 (08:24→22:12)
--- NOTE | 2016-11-27 10:44 | General Progress Note ---
Progress Note Progress Note pt is sp laparaoscoic appendectomy and hernia repair at an outside hospital.admitted for abd pain. ct and labs indicated acue pancreatitis. Being treated for same. on clear liquids Vital Sign - Last 24 Hours 11/26/16 11/26/16 11/26/16 11/26/16 11:57 12:00 15:09 16:00 Temp 98.2 98.2 Pulse 74 71 76 Resp 20 B/P 114/51 Pulse Ox 94 O2 Delivery Room Air 11/26/16 11/26/16 11/26/16 11/26/16 16:04 17:10 20:00 20:02 Temp 98.0 97.7 Pulse 73 77 75 Resp 20 20 B/P 114/49 114/49 131/58 Pulse Ox 96 96 O2 Delivery Room Air Room Air O2 Flow Rate 4.0 FiO2 100 11/26/16 11/27/16 11/27/16 11/27/16 22:28 00:00 00:00 04:00 Temp 97.7 97.7 Pulse 75 79 74 74 Resp 20 20 B/P 131/58 123/58 118/58 Pulse Ox 96 96 O2 Delivery Room Air Mechanical Ventilator O2 Flow Rate 4.0 4.0 FiO2 100 100 11/27/16 11/27/16 11/27/16 11/27/16 04:00 07:48 08:00 08:24 Temp 96.8 Pulse 69 70 71 70 Resp 18 B/P 118/45 118/45 Pulse Ox 98 O2 Delivery Room Air 11/27/16 08:24 B/P 118/45 Intake and Output 11/26/16 11/26/16 11/27/16 15:00 23:00 07:00 Intake Total 1155 ml 993.708 ml 1092.500 ml Balance 1155 ml 993.708 ml 1092.500 ml abd soft mildly tneder. laparoscopic wounds healing well no signs of infection Laboratory Tests Test 11/27/16 02:45 White Blood Count 9.0 K/UL (4.8-10.8) Red Blood Count 3.16 M/UL (4.20-5.40) L Hemoglobin 8.6 G/DL (12.0-16.0) L Hematocrit 26.6 % (37.0-47.0) L Mean Corpuscular Volume 84 FL (80-99) Mean Corpuscular Hemoglobin 27.1 PG (27.0-31.0) Mean Corpuscular Hemoglobin Concent 32.2 G/DL (32.0-36.0) Red Cell Distribution Width 14.0 % (11.6-14.8) Platelet Count 264 K/UL (150-450) Mean Platelet Volume 5.4 FL (6.5-10.1) L Neutrophils (%) (Auto) 80.8 % (45.0-75.0) H Lymphocytes (%) (Auto) 10.0 % (20.0-45.0) L Monocytes (%) (Auto) 6.6 % (1.0-10.0) Eosinophils (%) (Auto) 2.2 % (0.0-3.0) Basophils (%) (Auto) 0.4 % (0.0-2.0) Amylase Level 46 U/L (10-110) Lipase 19 U/L (< 60) Vancomycin Level Trough 10.4 ug/mL (5.0-12.0) amylase 46 lipase 15 Imp resolving pancreatitis SIMONE MOSER November 27, 2016 10:44
[2016-11-27 11:25] VITALS: BP 121/49
[2016-11-27] MEDS: D5 1/2NS w/KCl 20mEq 1,000 ML IV SCH (12:22)
--- NOTE | 2016-11-27 14:01 | Infectious Diseases Prog Note ---
Assessment/Plan Assessment/Plan ASSESSMENT AND PLAN: 1. sepsis, leukocytosis, pancreatitis, ? abscess, s/p abdominal surgery, uc negative - leukocytosis resolved - vancomycin and zosyn - check labs - surgery f/u, d/w Dr. Reynolds yesterday about fluid collection and just observation for now - consider discontinue abx if cultures remain negative 2. The patient has history of diabetes. 3. Hypertension. 4. Recent abdominal surgery for hernia repair and appendicitis. 5. Coronary artery disease. 6. Stents. 7. Pacemaker. 8. Chest pain. The patient has been seen by Cardiology. At this time, it is noncardiac chest pain. 9. Diabetes and hypertension treatment per Primary and Cardiology. 10. Hyperlipidemia. 11. Anemia. 12. Allergies are negative. 13. Case was discussed with Dr. Kemp. 14. Case was discussed with Dr. Oscar. 15. Social history negative. 16. MAR was noted. 17. Case was discussed with RN. 18. Family history is noncontributory. 19. Continue treatment per primary consultants. 20. Notes and records were reviewed. Subjective Constitutional: Denies: fever HEENT: Denies: congestion Respiratory: Denies: shortness of breath Cardiovascular: Denies: chest pain Gastrointestinal/Abdominal: Denies: nausea Genitourinary: Reports: other - no monique Neurologic: Denies: headache Psychiatric: Denies: depression Skin: Denies: rash Hematologic: Denies: bleeding Musculoskeletal: Denies: pain Allergies: Coded Allergies: No Known Allergies (Unverified , 11/23/16) Objective Vital Signs Last 24 Hour Vital Signs Date Time Temp Pulse Resp B/P Pulse Ox O2 Delivery O2 Flow Rate FiO2 11/27/16 12:00 66 11/27/16 11:25 98.2 66 18 121/49 97 Room Air 11/27/16 08:24 118/45 11/27/16 08:24 70 118/45 11/27/16 08:00 71 11/27/16 07:48 96.8 70 18 118/45 98 Room Air 11/27/16 04:00 69 11/27/16 04:00 97.7 74 20 118/58 96 Mechanical Ventilator 4.0 100 11/27/16 00:00 74 11/27/16 00:00 97.7 79 20 123/58 96 Room Air 4.0 100 11/26/16 22:28 75 131/58 11/26/16 20:02 97.7 75 20 131/58 96 Room Air 4.0 100 11/26/16 20:00 77 11/26/16 17:10 114/49 11/26/16 16:04 98.0 73 20 114/49 96 Room Air 11/26/16 16:00 76 11/26/16 15:09 98.2 Height (Feet): 5 Height (Inches): 2.00 Weight (Pounds): 149 General Appearance: no acute distress HEENT: normocephalic, atraumatic, anicteric, mucous membranes moist, PERRL, EOMI, pharynx normal, supple, no JVD Respiratory/Chest: lungs clear, normal breath sounds, no respiratory distress, no accessory muscle use Cardiovascular: normal rate, regular rhythm, no gallop/murmur, no JVD Abdomen: normal bowel sounds, soft, non tender, no organomegaly, non distended Genitourinary: other - no monique Extremities: no cyanosis, no clubbing Skin: no rash Neurologic/Psychiatric: resolution specialist II-XII grossly normal, alert, oriented x 3, responsive Lymphatic: no neck adenopathy Musculoskeletal: no effusion Objective Chest x-ray - atx Ct scan: Impression: Postsurgical changes, as described, with evidence of recent laparoscopic appendectomy. There is a 7.8 x 2.3 x 4.6 cm phlegmon or fluid collection within the right lower quadrant wound. This is probably routine postoperative fluid, but abscess collection not completely excludable. Equivocal slight prominence of the pancreas. There is considerable infiltration of the peripancreatic and upper abdominal fat as well as fluid/thickening of Gerota 's fascia bilaterally. While possibly related to the recent surgery, distribution of this is not typical for such, and raises concern for acute pancreatitis. Correlation with laboratory findings is recommended. Trace ascites fluid. Possibly related to recent surgery or pancreatic disease. Somewhat high attenuation indicates this fluid could be bloody Slight wall thickening of the duodenum, could be related to adjacent pancreatic disease or could indicate mild duodenitis US abdomen: Impression: No evidence of biliary ductal dilatation. CBD is 6 mm. Mild free fluid likely associated with pancreatitis. Direct visualization of the pancreas limited on this study due to bowel gas. Right renal cyst. Microbiology Date/Time Source Procedure Growth Status 11/25/16 19:00 Blood Blood Culture - Preliminary NO GROWTH AFTER 24 HOURS Resulted 11/25/16 18:50 Blood Blood Culture - Preliminary NO GROWTH AFTER 24 HOURS Resulted Laboratory Tests Test 11/27/16 02:45 White Blood Count 9.0 K/UL (4.8-10.8) Red Blood Count 3.16 M/UL (4.20-5.40) L Hemoglobin 8.6 G/DL (12.0-16.0) L Hematocrit 26.6 % (37.0-47.0) L Mean Corpuscular Volume 84 FL (80-99) Mean Corpuscular Hemoglobin 27.1 PG (27.0-31.0) Mean Corpuscular Hemoglobin Concent 32.2 G/DL (32.0-36.0) Red Cell Distribution Width 14.0 % (11.6-14.8) Platelet Count 264 K/UL (150-450) Mean Platelet Volume 5.4 FL (6.5-10.1) L Neutrophils (%) (Auto) 80.8 % (45.0-75.0) H Lymphocytes (%) (Auto) 10.0 % (20.0-45.0) L Monocytes (%) (Auto) 6.6 % (1.0-10.0) Eosinophils (%) (Auto) 2.2 % (0.0-3.0) Basophils (%) (Auto) 0.4 % (0.0-2.0) Amylase Level 46 U/L (10-110) Lipase 19 U/L (< 60) Vancomycin Level Trough 10.4 ug/mL (5.0-12.0) Current Medications Medications (Trade) Dose Ordered Sig/Nicole Route PRN Reason Start Time Stop Time Status Last Admin Dose Admin Acetaminophen (Tylenol Peds) 320 mg Q6H PRN ORAL Mild Pain/Temp > 100.5 11/23/16 15:45 12/23/16 15:44 Acetaminophen/ Hydrocodone Bitart ([place] 5/325) 1 tab Q6H PRN ORAL MODERATE TO SEVERE PAIN 11/23/16 16:30 11/30/16 16:29 11/24/16 00:00 Benazepril HCl (Lotensin) 20 mg BID ORAL 11/25/16 18:00 12/25/16 17:59 11/27/16 08:24 Carvedilol (Coreg) 25 mg EVERY 12 HOURS ORAL 11/23/16 21:00 12/23/16 20:59 11/27/16 08:24 Clonidine HCl 0.1 mg 0.1 mg EVERY 3 HOURS PRN ORAL SBP > 170 11/27/16 00:00 12/27/16 00:00 Clopidogrel Bisulfate (Plavix) 75 mg DAILY ORAL 11/24/16 09:00 12/24/16 08:59 11/27/16 08:23 Clotrimazole 1 applic 1 applic EVERY 12 HOURS TOPIC 11/24/16 21:00 12/24/16 20:59 11/27/16 08:24 Dextrose/ Electrolytes (D5 0.45%NS W/ KCl 20mEq) 1,000 ml @ 75 mls/hr [id number] IV 11/25/16 12:30 12/25/16 12:29 11/27/16 12:22 Morphine Sulfate (Morphine Sulfate) 2 mg Q3HR PRN IVP Moderate Pain (Pain Scale 4-6) 11/24/16 09:30 12/01/16 09:29 11/27/16 04:12 Morphine Sulfate (Morphine Sulfate) 4 mg Q3HR PRN IVP Severe Breakthru Pain (>7) 11/24/16 09:15 12/01/16 09:14 11/26/16 05:23 Nitroglycerin (Ntg) 0.4 mg Q5MIN X 3 DOSES PRN SL CHEST PAIN 11/23/16 15:45 12/23/16 15:44 Ondansetron HCl (Zofran) 4 mg Q4H PRN IVP Nausea & Vomiting 11/24/16 00:15 12/24/16 00:14 11/25/16 03:22 Piperacillin Sod/ Tazobactam Sod/ Dextrose (Zosyn/D5W) 110 ml @ 27.5 mls/hr EVERY 8 HOURS IVPB 11/25/16 14:00 11/30/16 13:59 11/27/16 13:11 Vancomycin HCl 1 ea 1 ea DAILY PRN MISC Per rx protocol 11/25/16 11:45 12/25/16 11:44 Vancomycin HCl/ Dextrose (Vancomycin/D5W) 275 ml @ 183.708 mls/hr Q12H IVPB 11/27/16 04:00 12/02/16 03:59 11/27/16 04:05 AKILAH ALVARES November 27, 2016 14:01
[2016-11-27] MEDS: Morphine Sulfate 4mg/ml Inj IVP PRN ×2 (14:20→22:12)
[2016-11-27 15:37] VITALS: BP 124/56
--- NOTE | 2016-11-27 16:40 | Pulmonology Progress Note ---
Assessment/Plan Assessment/Plan 1. Chest pain due to acute coronary syndrome, known CAD, stent 2. no myocardial infarction. 3. Hypertension. 4. Mild diabetes. 5. Appendectomy and hernia repair. 6. Leukocytosis 7. Pancreatitis still with pain ? post op lipase has dropped signifincantly diet as ordered ivf fu with cards recommendation wound care and mobilize check Am labs Subjective Constitutional: Reports: no symptoms HEENT: Repors: no symptoms Respiratory: Reports: no symptoms Cardiovascular: Reports: no symptoms Gastrointestinal/Abdominal: Reports: bloating, other - pain Genitourinary: Reports: no symptoms Skin: Reports: no symptoms Allergies: Coded Allergies: No Known Allergies (Unverified , 11/23/16) Subjective on clear liquids still iwth some pain but better no cp nv or bleeding no bm no fever noted Objective Last 24 Hour Vital Signs Date Time Temp Pulse Resp B/P Pulse Ox O2 Delivery O2 Flow Rate FiO2 11/27/16 15:37 97.1 67 18 124/56 96 Room Air 11/27/16 12:00 66 11/27/16 11:25 98.2 66 18 121/49 97 Room Air 11/27/16 08:24 118/45 11/27/16 08:24 70 118/45 11/27/16 08:00 71 11/27/16 07:48 96.8 70 18 118/45 98 Room Air 11/27/16 04:00 69 11/27/16 04:00 97.7 74 20 118/58 96 Mechanical Ventilator 4.0 100 11/27/16 00:00 74 11/27/16 00:00 97.7 79 20 123/58 96 Room Air 4.0 100 11/26/16 22:28 75 131/58 11/26/16 20:02 97.7 75 20 131/58 96 Room Air 4.0 100 11/26/16 20:00 77 11/26/16 17:10 114/49 Intake and Output 11/26/16 11/27/16 19:00 07:00 Intake Total 1848.708 ml 1392.500 ml Balance 1848.708 ml 1392.500 ml Intake Oral 840 ml 180 ml IV Total 1008.708 ml 1212.500 ml # Voids 5 1 General Appearance: WD/WN HEENT: atraumatic Respiratory/Chest: lungs clear Cardiovascular: normal rate, regular rhythm Abdomen: normal bowel sounds, distended, tender Extremities: no cyanosis Skin: no rash Neurologic/Psychiatric: alert, oriented x 3, responsive Lymphatic: no neck adenopathy Musculoskeletal: no effusion Microbiology Date/Time Source Procedure Growth Status 11/25/16 19:00 Blood Blood Culture - Preliminary NO GROWTH AFTER 24 HOURS Resulted 11/25/16 18:50 Blood Blood Culture - Preliminary NO GROWTH AFTER 24 HOURS Resulted Laboratory Tests 11/27/16 02:45: White Blood Count 9.0, Red Blood Count 3.16L, Hemoglobin 8.6L, Hematocrit 26.6L , Mean Corpuscular Volume 84, Mean Corpuscular Hemoglobin 27.1, Mean Corpuscular Hemoglobin Concent 32.2, Red Cell Distribution Width 14.0, Platelet Count 264, Mean Platelet Volume 5.4L, Neutrophils (%) (Auto) 80.8H, Lymphocytes (%) (Auto) 10.0L, Monocytes (%) (Auto) 6.6, Eosinophils (%) (Auto) 2.2, Basophils (%) (Auto) 0.4, Amylase Level 46, Lipase 19, Vancomycin Level Trough 10.4 Current Medications Medications (Trade) Dose Ordered Sig/Nicole Route PRN Reason Start Time Stop Time Status Last Admin Dose Admin Acetaminophen (Tylenol Peds) 320 mg Q6H PRN ORAL Mild Pain/Temp > 100.5 11/23/16 15:45 12/23/16 15:44 Acetaminophen/ Hydrocodone Bitart ([place] 5/325) 1 tab Q6H PRN ORAL MODERATE TO SEVERE PAIN 11/23/16 16:30 11/30/16 16:29 11/24/16 00:00 Benazepril HCl (Lotensin) 20 mg BID ORAL 11/25/16 18:00 12/25/16 17:59 11/27/16 08:24 Carvedilol (Coreg) 25 mg EVERY 12 HOURS ORAL 11/23/16 21:00 12/23/16 20:59 11/27/16 08:24 Clonidine HCl 0.1 mg 0.1 mg EVERY 3 HOURS PRN ORAL SBP > 170 11/27/16 00:00 12/27/16 00:00 Clopidogrel Bisulfate (Plavix) 75 mg DAILY ORAL 11/24/16 09:00 12/24/16 08:59 11/27/16 08:23 Clotrimazole 1 applic 1 applic EVERY 12 HOURS TOPIC 11/24/16 21:00 12/24/16 20:59 11/27/16 08:24 Dextrose/ Electrolytes (D5 0.45%NS W/ KCl 20mEq) 1,000 ml @ 75 mls/hr [id number] IV 11/25/16 12:30 12/25/16 12:29 11/27/16 12:22 Morphine Sulfate (Morphine Sulfate) 2 mg Q3HR PRN IVP Moderate Pain (Pain Scale 4-6) 11/24/16 09:30 12/01/16 09:29 11/27/16 04:12 Morphine Sulfate (Morphine Sulfate) 4 mg Q3HR PRN IVP Severe Breakthru Pain (>7) 11/24/16 09:15 12/01/16 09:14 11/27/16 14:20 Nitroglycerin (Ntg) 0.4 mg Q5MIN X 3 DOSES PRN SL CHEST PAIN 11/23/16 15:45 12/23/16 15:44 Ondansetron HCl (Zofran) 4 mg Q4H PRN IVP Nausea & Vomiting 11/24/16 00:15 12/24/16 00:14 11/25/16 03:22 Piperacillin Sod/ Tazobactam Sod/ Dextrose (Zosyn/D5W) 110 ml @ 27.5 mls/hr EVERY 8 HOURS IVPB 11/25/16 14:00 11/30/16 13:59 11/27/16 13:11 Vancomycin HCl 1 ea 1 ea DAILY PRN MISC Per rx protocol 11/25/16 11:45 12/25/16 11:44 Vancomycin HCl/ Dextrose (Vancomycin/D5W) 275 ml @ 183.708 mls/hr Q12H IVPB 11/27/16 04:00 12/02/16 03:59 11/27/16 04:05 MAGALY DANGELO DO November 27, 2016 16:40
[2016-11-27 20:00] VITALS: BP 137/55
[2016-11-28 00:15] VITALS: BP 136/65
[2016-11-28] MEDS: D5 1/2NS w/KCl 20mEq 1,000 ML IV SCH ×2 (02:41→20:21)
[2016-11-28] MEDS: Morphine Sulfate 2mg/ml Inj IVP PRN ×2 (02:41→17:22)
[2016-11-28] MEDS: Vancomycin 1gm/D5W 275ml IVPB SCH ×4 (03:48→20:22)
[2016-11-28 04:00] VITALS: BP 140/51
--- NOTE | 2016-11-28 06:19 | Pulmonology Progress Note ---
Assessment/Plan Assessment/Plan 1. Chest pain due to acute coronary syndrome, known CAD, stent 2. no myocardial infarction. 3. Hypertension. 4. Mild diabetes. 5. Appendectomy and hernia repair. 6. Leukocytosis 7. Pancreatitis still with pain ? post op worse since yesterday labs pending this am diet as ordered ivf fu with cards recommendation wound care and mobilize check Am labs will as GI to assess as well Subjective Constitutional: Reports: no symptoms HEENT: Repors: no symptoms Cardiovascular: Reports: no symptoms Gastrointestinal/Abdominal: Reports: bloating, other Neurologic: Reports: no symptoms Psychiatric: Reports: no symptoms Allergies: Coded Allergies: No Known Allergies (Unverified , 11/23/16) Subjective on clear liquids pain worse over night required 4 mg Iv mso4 with minimal improvement seems more bloated today very small bm no cp nv or bleeding no bm no fever noted Objective Last 24 Hour Vital Signs Date Time Temp Pulse Resp B/P Pulse Ox O2 Delivery O2 Flow Rate FiO2 11/28/16 04:00 67 11/28/16 04:00 97.0 70 18 140/51 96 Nasal Cannula 11/28/16 00:15 97.7 74 19 136/65 97 Room Air 11/28/16 00:00 70 11/27/16 22:12 75 115/85 11/27/16 20:00 97.7 72 18 137/55 97 Room Air 11/27/16 20:00 71 11/27/16 17:16 124/56 11/27/16 16:00 70 11/27/16 15:37 97.1 67 18 124/56 96 Room Air 11/27/16 12:00 66 11/27/16 11:25 98.2 66 18 121/49 97 Room Air 11/27/16 08:24 118/45 11/27/16 08:24 70 118/45 11/27/16 08:00 71 11/27/16 07:48 96.8 70 18 118/45 98 Room Air Intake and Output 11/27/16 11/28/16 19:00 07:00 Intake Total 2784.916 ml 1148.708 ml Balance 2784.916 ml 1148.708 ml Intake Oral 1400 ml 180 ml IV Total 1384.916 ml 968.708 ml # Voids 3 2 General Appearance: WD/WN HEENT: atraumatic Respiratory/Chest: lungs clear, normal breath sounds Cardiovascular: normal rate, regularly irregular Abdomen: normal bowel sounds, distended, tender Extremities: no cyanosis Skin: no lesions Microbiology Date/Time Source Procedure Growth Status 11/25/16 19:00 Blood Blood Culture - Preliminary NO GROWTH AFTER 48 HOURS Resulted 11/25/16 18:50 Blood Blood Culture - Preliminary NO GROWTH AFTER 48 HOURS Resulted Current Medications Medications (Trade) Dose Ordered Sig/Nicole Route PRN Reason Start Time Stop Time Status Last Admin Dose Admin Acetaminophen (Tylenol Peds) 320 mg Q6H PRN ORAL Mild Pain/Temp > 100.5 11/23/16 15:45 12/23/16 15:44 Acetaminophen/ Hydrocodone Bitart ([place] 5/325) 1 tab Q6H PRN ORAL MODERATE TO SEVERE PAIN 11/23/16 16:30 11/30/16 16:29 11/24/16 00:00 Benazepril HCl (Lotensin) 20 mg BID ORAL 11/25/16 18:00 12/25/16 17:59 11/27/16 17:16 Carvedilol (Coreg) 25 mg EVERY 12 HOURS ORAL 11/23/16 21:00 12/23/16 20:59 11/27/16 22:12 Clonidine HCl 0.1 mg 0.1 mg EVERY 3 HOURS PRN ORAL SBP > 170 11/27/16 00:00 12/27/16 00:00 Clopidogrel Bisulfate (Plavix) 75 mg DAILY ORAL 11/24/16 09:00 12/24/16 08:59 11/27/16 08:23 Clotrimazole 1 applic 1 applic EVERY 12 HOURS TOPIC 11/24/16 21:00 12/24/16 20:59 11/27/16 22:16 Dextrose/ Electrolytes (D5 0.45%NS W/ KCl 20mEq) 1,000 ml @ 75 mls/hr [id number] IV 11/25/16 12:30 12/25/16 12:29 11/28/16 02:41 Morphine Sulfate (Morphine Sulfate) 2 mg Q3HR PRN IVP Moderate Pain (Pain Scale 4-6) 11/24/16 09:30 12/01/16 09:29 11/28/16 02:41 Morphine Sulfate (Morphine Sulfate) 4 mg Q3HR PRN IVP Severe Breakthru Pain (>7) 11/24/16 09:15 12/01/16 09:14 11/27/16 22:12 Nitroglycerin (Ntg) 0.4 mg Q5MIN X 3 DOSES PRN SL CHEST PAIN 11/23/16 15:45 12/23/16 15:44 Ondansetron HCl (Zofran) 4 mg Q4H PRN IVP Nausea & Vomiting 11/24/16 00:15 12/24/16 00:14 11/25/16 03:22 Piperacillin Sod/ Tazobactam Sod/ Dextrose (Zosyn/D5W) 110 ml @ 27.5 mls/hr EVERY 8 HOURS IVPB 11/25/16 14:00 11/30/16 13:59 11/27/16 22:13 Vancomycin HCl 1 ea 1 ea DAILY PRN MISC Per rx protocol 11/25/16 11:45 12/25/16 11:44 Vancomycin HCl/ Dextrose (Vancomycin/D5W) 275 ml @ 183.708 mls/hr Q12H IVPB 11/27/16 04:00 12/02/16 03:59 11/28/16 03:48 MAGALY DANGELO DO November 28, 2016 06:19
[2016-11-28] MEDS: Piperacillin/Tazobactam 3.375 GM in D5W 110 ML IVPB SCH ×2 (06:26→15:31)
--- NOTE | 2016-11-28 06:38 | Progress Note ---
DATE: 11/27/2016 CARDIOLOGY PROGRESS NOTE SUBJECTIVE: The patient has less abdominal pain. No shortness of breath or chest pain. OBJECTIVE: VITAL SIGNS: Blood pressure 121/49, pulse 66, and respirations 18. NECK: Supple. LUNGS: Clear. CARDIAC: Regular. Normal S1 and S2. ABDOMEN: Soft. Mild midepigastric tenderness. No edema. Skin changes with erythema diminished. LABORATORY AND DIAGNOSTIC DATA: Labs were reviewed. IMPRESSION: 1. Noncardiac chest pain in the setting of known CAD and prior coronary stent. 2. Acute pancreatitis, improving, status post appendectomy and hernia repair with wound infection and cellulitis, resolving. 3. Hypertensive heart disease with controlled blood pressure. 4. Anemia, microcytic. 5. Hypomagnesemia. 6. Type 2 diabetes mellitus. 7. Permanent pacemaker. PLAN: 1. Replace electrolytes and protein supplement once tolerating diet. 2. Continue current antihypertensive regimen. 3. Insulin coverage by sliding scale. 4. Check iron panel. 5. No additional cardiovascular workup presently found. Edgar Oscar M.D. DR: July JOB#: [id number] CC: MISTY
[2016-11-28 07:12] LABS: BASOPHILS % (AUTO) 0.6 % (0.0-2.0); EOSINOPHILS % (AUTO) 3.8 % (0.0-3.0); LYMPHOCYTES % (AUTO) 11.7 % (20.0-45.0); MEAN CORPUSCULAR HEMOGLOBIN 27.2 PG (27.0-31.0); MEAN CORPUSCULAR HGB CONC 31.6 G/DL (32.0-36.0); MEAN CORPUSCULAR VOLUME 86 FL (80-99); MEAN PLATELET VOLUME 5.5 FL (6.5-10.1); MONOCYTES % (AUTO) 8.4 % (1.0-10.0); NEUTROPHILS % (AUTO) 75.6 % (45.0-75.0); PLATELET COUNT 265 K/UL (150-450); RED CELL DISTRIBUTION WIDTH 14.1 % (11.6-14.8); WHITE BLOOD COUNT 7.2 K/UL (4.8-10.8)
[2016-11-28 07:43] LABS: AMYLASE 33 U/L (10-110); ANION GAP 11 (5-15); CALCIUM 8.9 mg/dL (8.6-10.2); CARBON DIOXIDE 26 mEQ/L (20-30); CHLORIDE 101 mEQ/L (98-107); CREATININE 0.6 mg/dL (0.5-0.9); HEMOLYSIS 2; LIPASE 16 U/L (< 60); POTASSIUM 4.1 mEQ/L (3.4-4.9); SODIUM 138 mEQ/L (135-145)
[2016-11-28 07:47] LABS: MAGNESIUM 1.7 mg/dL (1.7-2.5)
[2016-11-28 08:08] VITALS: BP 141/60
[2016-11-28] MEDS: Carvedilol 25mg Tab ORAL SCH ×2 (08:56→22:30)
[2016-11-28] MEDS: Benazepril 10mg tab ORAL SCH ×2 (08:56→17:23)
[2016-11-28] MEDS ORDERED: Tubing IV Secondary IV ONE (10:07)
--- NOTE | 2016-11-28 10:35 | General Progress Note ---
Progress Note Progress Note recentlly had laproscopic appendectomy and repiar of hernia at an outside hospital,developed pancreatitits with ct findings and elevation of lipase and amylase, which have returned to normal range. still has lower abd pain. has passed flatus but has not had bm for several days ' Vital Sign - Last 24 Hours 11/27/16 11/27/16 11/27/16 11/27/16 11:25 12:00 15:37 16:00 Temp 98.2 97.1 Pulse 66 66 67 70 Resp 18 18 B/P 121/49 124/56 Pulse Ox 97 96 O2 Delivery Room Air Room Air 11/27/16 11/27/16 11/27/16 11/27/16 17:16 20:00 20:00 22:12 Temp 97.7 Pulse 71 72 75 Resp 18 B/P 124/56 137/55 115/85 Pulse Ox 97 O2 Delivery Room Air 11/28/16 11/28/16 11/28/16 11/28/16 00:00 00:15 04:00 04:00 Temp 97.7 97.0 Pulse 70 74 70 67 Resp 19 18 B/P 136/65 140/51 Pulse Ox 97 96 O2 Delivery Room Air Nasal Cannula 11/28/16 11/28/16 11/28/16 08:08 08:56 08:56 Temp 96.3 Pulse 70 70 Resp 18 B/P 141/60 141/60 141/60 Pulse Ox 96 O2 Delivery Room Air Intake and Output 11/27/16 11/27/16 11/28/16 15:00 23:00 07:00 Intake Total 1685.0 ml 1399.916 ml 1015.000 ml Balance 1685.0 ml 1399.916 ml 1015.000 ml abdomen is soft obese, minimally tender but no guarding. Etiology of pancreatitis still undertermined. no evidence of gallstones on ultrasound, normal lipids, no suspected medications Discussed with Dr Miller. Can not get MRCP as pt has pacemaker clinically is improving/ SIMONE MOSER November 28, 2016 10:35
--- NOTE | 2016-11-28 10:40 | General Progress Note ---
Assessment/Plan Assessment/Plan Assessment - Recent pancreatitis, resolved. Presumed due to passed stone. - CT and U/S negative for stones. MRCP not feasible due to pacemaker. - Abdominal pain is lower/pelvic - doubt related to pancreas - constipation - anemia, partly dilutional, will check OB Recommendations - wean off narcotics - check stool OB - Monitor H&H - outpatient EGD/colon once wounds healed - ? repeat CT if pain persists Thank you Abiodun Miller MD Subjective Allergies: Coded Allergies: No Known Allergies (Unverified , 11/23/16) Objective Last 24 Hour Vital Signs Date Time Temp Pulse Resp B/P Pulse Ox O2 Delivery O2 Flow Rate FiO2 11/28/16 08:56 141/60 11/28/16 08:56 70 141/60 11/28/16 08:08 96.3 70 18 141/60 96 Room Air 11/28/16 04:00 67 11/28/16 04:00 97.0 70 18 140/51 96 Nasal Cannula 11/28/16 00:15 97.7 74 19 136/65 97 Room Air 11/28/16 00:00 70 11/27/16 22:12 75 115/85 11/27/16 20:00 97.7 72 18 137/55 97 Room Air 11/27/16 20:00 71 11/27/16 17:16 124/56 11/27/16 16:00 70 11/27/16 15:37 97.1 67 18 124/56 96 Room Air 11/27/16 12:00 66 11/27/16 11:25 98.2 66 18 121/49 97 Room Air Intake and Output 11/27/16 11/28/16 19:00 07:00 Intake Total 2784.916 ml 1315.000 ml Balance 2784.916 ml 1315.000 ml Intake Oral 1400 ml 180 ml IV Total 1384.916 ml 1135.000 ml # Voids 3 2 Laboratory Tests 11/28/16 05:10: White Blood Count 7.2, Red Blood Count 3.00L, Hemoglobin 8.2L, Hematocrit 25.9L , Mean Corpuscular Volume 86, Mean Corpuscular Hemoglobin 27.2, Mean Corpuscular Hemoglobin Concent 31.6L, Red Cell Distribution Width 14.1, Platelet Count 265, Mean Platelet Volume 5.5L, Neutrophils (%) (Auto) 75.6H, Lymphocytes (%) (Auto) 11.7L, Monocytes (%) (Auto) 8.4, Eosinophils (%) (Auto) 3.8H, Basophils (%) (Auto) 0.6, Sodium Level 138, Potassium Level 4.1, Chloride Level 101, Carbon Dioxide Level 26, Anion Gap 11, Blood Urea Nitrogen 3L, Creatinine 0.6, Estimat Glomerular Filtration Rate , Glucose Level 170H, Calcium Level 8.9, Magnesium Level 1.7, Iron Level 17L, Total Iron Binding Capacity 156L, Percent Iron Saturation 11L, Unsaturated Iron Binding 139, Amylase Level 33, Lipase 16 Height (Feet): 5 Height (Inches): 2.00 Weight (Pounds): 149 ABIODUN MILLER November 28, 2016 10:40
[2016-11-28] MEDS ORDERED: Sorbitol Solution UD 30ml ORAL ONE (11:00)
[2016-11-28 11:16] VITALS: BP 129/57
[2016-11-28] MEDS: Morphine Sulfate 4mg/ml Inj IVP PRN (12:15)
[2016-11-28 15:33] VITALS: BP 150/68
[2016-11-28 20:24] VITALS: BP 147/68
--- NOTE | 2016-11-28 21:58 | Progress Note ---
DATE: 11/28/2016 CARDIOLOGY PROGRESS NOTE: SUBJECTIVE: The patient still complains of abdominal pain. She has not had a bowel movement for a few days. She denies chest pain or shortness of breath. Her pancreatic enzymes had returned to normal levels. OBJECTIVE: VITAL SIGNS: Blood pressure 141/60, pulse 70, and respiratory rate 18. NECK: Supple. LUNGS: Clear. CARDIAC: Regular rhythm and rate. Normal S1, S2. ABDOMEN: Soft. Right mid epigastric pain. No guarding or rebound. EXTREMITIES: Without edema. LABORATORY DATA: White count 7.2 and hemoglobin 8.2. Magnesium 1.7. Iron saturation 11%. IMPRESSION: 1. Resolving pancreatitis. 2. Postoperative appendectomy and hernia repair. 3. Postoperative cellulitis. 4. Iron deficiency with anemia. 5. Permanent pacemaker. 6. Noncardiac chest pain in the setting of known CAD and prior coronary stent. 7. Severe protein-calorie malnutrition. PLAN: IV iron. Bowel regimen. Protein supplement once diet is advanced. No MRI in view of pacemaker. No change in cardiovascular regimen at this time. Edgar Oscar M.D. DR: Wendi JOB#: [id number] CC: MISTY
--- NOTE | 2016-11-28 22:18 | Consultation ---
DATE OF CONSULTATION: 11/28/2016 GASTROLOGY CONSULTATION CHIEF COMPLAINT: I was asked to see this patient by Dr. Melissa Zarco for Dr. Humphrey for evaluation of abdominal pain. HISTORY OF PRESENT ILLNESS: This patient is a 76-year-old woman who came to the hospital by paramedics due to chest and abdominal pain and emesis. She had a diagnosis of pancreatitis with amylase and lipase in the 800 range and treated. Her amylase and lipase however subsequently went down to normal level now. A CT scan has been done showing some inflammatory changes around the pancreas, but this could be again secondary complications. The patient had a surgery on 11/09/2016 at for appendectomy and also hernia repair. The patient stated that she has had abdominal pain since then without resolution. She points to her lower abdomen as location for the pain in the bilateral lower quadrants. She denies any epigastric abdominal pain. The patient has been placed on clear liquid diet, which she is tolerating. She has not had a bowel movement since five days or so and as such she has been getting narcotics for pain control. She does not have any history of heavy alcohol abuse and there are no gallstones seen on either the abdominal ultrasound or abdominal CT scan. She does have a pacemaker and so an MRCP examination is not feasible. The patient also has a finding of anemia, but she cannot recall having ever had endoscopy or colonoscopy. PAST MEDICAL HISTORY: History of diabetes, history of hypertension, and status post pacemaker placement, status post recent appendectomy and hernia repair. MEDICATIONS: See chart for details. ALLERGIES: None. SOCIAL HISTORY: The patient is , . She does not smoke or drink alcohol. She is and Mongolian-speaking only. She lives with . REVIEW OF SYSTEMS: Otherwise negative. FAMILY HISTORY: Unremarkable. PHYSICAL EXAMINATION: GENERAL: The patient is a pleasant woman, seen with her at bedside. HEENT: Normocephalic and atraumatic. Sclerae anicteric. Oropharynx clear. NECK: Supple. CHEST: Clear to auscultation. CARDIOVASCULAR: Revealed a regular rate. ABDOMEN: Soft with recent wounds which area sealed with some soft aurea. There is a mild lower quadrant tenderness to palpation, but there is no epigastric tenderness to palpation. EXTREMITIES: No edema. LABORATORY AND DIAGNOSTIC DATA: Laboratory and imaging studies were noted. ASSESSMENT: This patient presents with persistent lower abdominal pain in the lower quadrants, which based on the location of the scars, may be postoperative in nature. The location of the pain is not typical for pancreatitis and her pancreatic enzymes have resolved. In addition, the patient states that this pain has been there since the surgery and therefore more wound related pain would be more likely. The patient also has a significant degree of anemia and therefore her stools will be checked for occult blood. She may need an endoscopy and colonoscopy to evaluate the gastrointestinal tract, but this should be deferred until her wounds have healed. Should she show evidence of further drop in the blood count, then an endoscopic evaluation will have to be done now. RECOMMENDATION: 1. Check stool for occult blood. 2. Follow laboratory parameters and exam. 3. Surgical followup regarding pain. 4. Periodic amylase and lipase. Thank you for asking me to participate in the care of this patient. Abiodun Miller M.D. DR: ENRIKE JOB#: [id number] CC:
[2016-11-28] MEDS: Iron Sucrose 100 MG in NS 55 ML IVPB SCH (22:30)
[2016-11-28] MEDS: Piperacillin/Tazobactam 3.375 GM in NS 110 ML IVPB SCH (23:18)
[2016-11-29] VITALS: BP 149/67
[2016-11-29] MEDS: Morphine Sulfate 4mg/ml Inj IVP PRN (02:50)
[2016-11-29 04:06] VITALS: BP 150/65
[2016-11-29 05:46] LABS: EOSINOPHILS % (AUTO) 4.5 % (0.0-3.0); LYMPHOCYTES % (AUTO) 14.1 % (20.0-45.0); MEAN CORPUSCULAR HEMOGLOBIN 27.1 PG (27.0-31.0); MEAN CORPUSCULAR HGB CONC 32.1 G/DL (32.0-36.0); MEAN CORPUSCULAR VOLUME 85 FL (80-99); MEAN PLATELET VOLUME 5.3 FL (6.5-10.1); MONOCYTES % (AUTO) 8.8 % (1.0-10.0); NEUTROPHILS % (AUTO) 71.6 % (45.0-75.0); PLATELET COUNT 283 K/UL (150-450); RED BLOOD COUNT 2.99 M/UL (4.20-5.40); RED CELL DISTRIBUTION WIDTH 13.6 % (11.6-14.8); WHITE BLOOD COUNT 5.7 K/UL (4.8-10.8)
[2016-11-29] MEDS: Vancomycin 1gm/D5W 275ml IVPB SCH ×2 (06:02)
[2016-11-29 06:09] LABS: AMYLASE 31 U/L (10-110); ANION GAP 11 (5-15); CALCIUM 8.9 mg/dL (8.6-10.2); CARBON DIOXIDE 28 mEQ/L (20-30); CHLORIDE 99 mEQ/L (98-107); CREATININE 0.5 mg/dL (0.5-0.9); HEMOLYSIS 2; LIPASE 17 U/L (< 60); POTASSIUM 3.9 mEQ/L (3.4-4.9); SODIUM 138 mEQ/L (135-145)
[2016-11-29 06:12] LABS: BILIRUBIN,DIRECT 0.2 mg/dL (0.1-0.3); MAGNESIUM 1.7 mg/dL (1.7-2.5); TOTAL PROTEIN 5.3 g/dL (6.6-8.7)
[2016-11-29] MEDS: Piperacillin/Tazobactam 3.375 GM in NS 110 ML IVPB SCH ×2 (07:47→14:21)
[2016-11-29 08:00] VITALS: BP 149/61
--- NOTE | 2016-11-29 08:09 | Diagnostic Imaging Report ---
Indication: Abdominal pain Comparison: 11/24/16 Single view of the abdomen obtained Surgical skin aurea are noted. Bowel gas pattern is nonspecific. Some contrast noted within the colon. NG tube was removed. Pacemakers noted. Bones are osteopenic. Impression: No acute findings appreciated.
[2016-11-29] MEDS: Carvedilol 25mg Tab ORAL SCH ×2 (09:03→21:16)
[2016-11-29] MEDS: Benazepril 10mg tab ORAL SCH ×2 (09:04→17:52)
--- NOTE | 2016-11-29 09:40 | General Progress Note ---
Assessment/Plan Assessment/Plan less abdominal pain, will change to PO rx tolerates clears; advance lab better, WBC normal. amylase normal Hgb stabilized at 8.1 PT ambulate dc plan tomorrow to SNF 1. Chest pain due to acute coronary syndrome, known CAD, stent 2. No myocardial infarction. 3. Hypertension. 4. Mild diabetes. 5. Appendectomy and hernia repair. 6. Leukocytosis, resolved 7. Pancreatitis, resolved Subjective Constitutional: Denies: fever Gastrointestinal/Abdominal: Reports: abdominal pain - less Allergies: Coded Allergies: No Known Allergies (Unverified , 11/23/16) Objective Last 24 Hour Vital Signs Date Time Temp Pulse Resp B/P Pulse Ox O2 Delivery O2 Flow Rate FiO2 11/29/16 09:04 149/61 11/29/16 09:03 70 149/61 11/29/16 08:00 97.3 70 20 149/61 97 Nasal Cannula 1.0 11/29/16 04:06 98.2 67 18 150/65 94 Room Air 11/29/16 04:00 65 11/29/16 00:00 98.3 71 17 149/67 95 Room Air 11/29/16 00:00 70 11/28/16 22:30 75 147/85 11/28/16 20:46 77 11/28/16 20:24 97.2 63 19 147/68 98 Room Air 11/28/16 17:23 150/68 11/28/16 16:00 66 11/28/16 15:33 97.5 67 18 150/68 96 Room Air 11/28/16 12:00 62 11/28/16 11:16 96.5 67 18 129/57 95 Room Air Intake and Output 11/28/16 11/29/16 19:00 07:00 Intake Total 1957.5 ml 970.000 ml Balance 1957.5 ml 970.000 ml Intake Oral 950 ml IV Total 1007.5 ml 970.000 ml # Voids 3 2 # Bowel Movements 3 1 Laboratory Tests 11/28/16 14:30: Stool Occult Blood [Pending] 11/29/16 05:15: White Blood Count 5.7, Red Blood Count 2.99L, Hemoglobin 8.1L, Hematocrit 25.3L , Mean Corpuscular Volume 85, Mean Corpuscular Hemoglobin 27.1, Mean Corpuscular Hemoglobin Concent 32.1, Red Cell Distribution Width 13.6, Platelet Count 283, Mean Platelet Volume 5.3L, Neutrophils (%) (Auto) 71.6, Lymphocytes ( %) (Auto) 14.1L, Monocytes (%) (Auto) 8.8, Eosinophils (%) (Auto) 4.5H, Basophils (%) (Auto) 1.0, Sodium Level 138, Potassium Level 3.9, Chloride Level 99, Carbon Dioxide Level 28, Anion Gap 11, Blood Urea Nitrogen 3L, Creatinine 0.5, Estimat Glomerular Filtration Rate , Glucose Level 161H, Calcium Level 8.9 , Magnesium Level 1.7, Total Bilirubin 0.6, Direct Bilirubin 0.2, Aspartate Amino Transf (AST/SGOT) 13, Alanine Aminotransferase (ALT/SGPT) 8, Alkaline Phosphatase 118H, Total Protein 5.3L, Albumin 2.1L, Amylase Level 31, Lipase 17 Height (Feet): 5 Height (Inches): 2.00 Weight (Pounds): 149 General Appearance: no apparent distress Cardiovascular: normal rate Respiratory/Chest: lungs clear Abdomen: non tender MAY MARSH November 29, 2016 09:40
--- NOTE | 2016-11-29 10:20 | Cardiology Report ---
APPROVED REPORT EXAM: Two-dimensional and M-mode echocardiogram with Doppler and color Doppler. M-Mode DIMENSIONS IVSd1.3 (0.7-1.1cm)Left Atrium (MM)4.2 (1.6-4.0cm) LVDd4.2 (3.5-5.6cm)Aortic Root2.9 (2.0-3.7cm) PWd1.3 (0.7-1.1cm)Aortic Cusp Exc.1.8 (1.5-2.0cm) LVDs3.1 (2.5-4.0cm) PWs1.5 cm Normal left ventricular chamber size. Study quality precludes accurate assessment of regional wall motion. Left ventricular ejection fraction estimated to be 55 %. Mild left ventricular hypertrophy. Anterior Echo-free space, may be due to pericardial fat or effusion. Mild left atrial enlargement. Right cardiac chamber sizes are within normal limits. Mild focal aortic valve sclerosis with adequate cusp excursion. Mildly thickened mitral valve leaflets with normal excursion. Mitral annulus and aortic root calcification. Pulmonic valve not well visualized. Normal tricuspid valve structure. IVC at normal size with physiologic collapse. Pacemaker wire present in the right side chambers. A color flow and spectral Doppler study was performed and revealed: Trace mitral regurgitation. Mild tricuspid regurgitation. Tricuspid systolic velocities suggests peak right ventricular systolic pressure of 44 mmHg, consistent with mild pulmonary hypertension.
[2016-11-29] MEDS: Norco 5mg/325mg tab ORAL PRN ×2 (10:22→23:24)
--- NOTE | 2016-11-29 10:50 | General Surgery Progress Note ---
General Surgery-Progress Note Subjective Symptoms: improved, tolerating diet, passing flatus, BM Additional Comments pain improved. exam improved. multiple BM's. doing well overall Objective Last 24 Hour Vital Signs Date Time Temp Pulse Resp B/P Pulse Ox O2 Delivery O2 Flow Rate FiO2 11/29/16 09:04 149/61 11/29/16 09:03 70 149/61 11/29/16 08:00 97.3 70 20 149/61 97 Nasal Cannula 1.0 11/29/16 04:06 98.2 67 18 150/65 94 Room Air 11/29/16 04:00 65 11/29/16 00:00 98.3 71 17 149/67 95 Room Air 11/29/16 00:00 70 11/28/16 22:30 75 147/85 11/28/16 20:46 77 11/28/16 20:24 97.2 63 19 147/68 98 Room Air 11/28/16 17:23 150/68 11/28/16 16:00 66 11/28/16 15:33 97.5 67 18 150/68 96 Room Air 11/28/16 12:00 62 11/28/16 11:16 96.5 67 18 129/57 95 Room Air I&O Intake and Output 11/28/16 11/29/16 19:00 07:00 Intake Total 1957.5 ml 970.000 ml Balance 1957.5 ml 970.000 ml Intake Oral 950 ml IV Total 1007.5 ml 970.000 ml # Voids 3 2 # Bowel Movements 3 1 Wound: clean, dry, intact Cardiovascular: RSR Respiratory: clear Abdomen: soft, distended, non-tender, present bowel sounds Laboratory Tests Test 11/28/16 14:30 11/29/16 05:15 Stool Occult Blood Pending White Blood Count 5.7 K/UL (4.8-10.8) Red Blood Count 2.99 M/UL (4.20-5.40) L Hemoglobin 8.1 G/DL (12.0-16.0) L Hematocrit 25.3 % (37.0-47.0) L Mean Corpuscular Volume 85 FL (80-99) Mean Corpuscular Hemoglobin 27.1 PG (27.0-31.0) Mean Corpuscular Hemoglobin Concent 32.1 G/DL (32.0-36.0) Red Cell Distribution Width 13.6 % (11.6-14.8) Platelet Count 283 K/UL (150-450) Mean Platelet Volume 5.3 FL (6.5-10.1) L Neutrophils (%) (Auto) 71.6 % (45.0-75.0) Lymphocytes (%) (Auto) 14.1 % (20.0-45.0) L Monocytes (%) (Auto) 8.8 % (1.0-10.0) Eosinophils (%) (Auto) 4.5 % (0.0-3.0) H Basophils (%) (Auto) 1.0 % (0.0-2.0) Sodium Level 138 mEQ/L (135-145) Potassium Level 3.9 mEQ/L (3.4-4.9) Chloride Level 99 mEQ/L (98-107) Carbon Dioxide Level 28 mEQ/L (20-30) Anion Gap 11 (5-15) Blood Urea Nitrogen 3 mg/dL (7-23) L Creatinine 0.5 mg/dL (0.5-0.9) Estimat Glomerular Filtration Rate mL/min (>60) Glucose Level 161 mg/dL (74-106) H Calcium Level 8.9 mg/dL (8.6-10.2) Magnesium Level 1.7 mg/dL (1.7-2.5) Total Bilirubin 0.6 mg/dL (0.0-1.2) Direct Bilirubin 0.2 mg/dL (0.1-0.3) Aspartate Amino Transf (AST/SGOT) 13 U/L (5-40) Alanine Aminotransferase (ALT/SGPT) 8 U/L (3-33) Alkaline Phosphatase 118 U/L (35-104) H Total Protein 5.3 g/dL (6.6-8.7) L Albumin 2.1 g/dL (3.5-5.2) L Amylase Level 31 U/L (10-110) Lipase 17 U/L (< 60) Plan Problems: (1) Abdominal pain Assessment & Plan: 76F recently had lap hernia repair and appendectomy and then presented with abdominal pain, nausea, emesis. CT scan with peripanc inflammation suggestive of pancreatitis. Flaquita/Lip elevated. Abd US without stones or gallbladder etiology. likely idiopathic pancreatitis which is resolving. currently afebrile, HD stable, exam benign, tolerating diet, BM's, labs improved. Dx: Acute pancreatitis -diet as tolerated -surgical wounds currently look stable without signs of infection. abdominal exam stable. -okay to d/c from surgical standpoint. needs to follow up with surgeon after d/ c for post op and staple removal. Douglas Lee November 29, 2016 10:50
[2016-11-29] MEDS: D5 1/2NS w/KCl 20mEq 1,000 ML IV SCH ×2 (11:25→23:24)
[2016-11-29 12:03] VITALS: BP 137/54
--- NOTE | 2016-11-29 14:40 | GI Progress Note ---
Assessment/Plan Problems: (1) Abdominal pain ICD Codes: R10.9 - Unspecified abdominal pain SNOMED: 99506719 Qualifiers: Qualified Codes: R10.84 - Generalized abdominal pain (2) Pancreatitis ICD Codes: K85.90 - Acute pancreatitis without necrosis or infection, unspecified SNOMED: 61107704 (3) Constipation ICD Codes: K59.00 - Constipation, unspecified SNOMED: 22341358 (4) Anemia ICD Codes: D64.9 - Anemia, unspecified SNOMED: 761311526 Status: stable, progressing Status Narrative Discussed with Dr. Humphrey. Assessment/Plan Assessment - Recent pancreatitis, resolved. Presumed due to passed stone. - CT and U/S negative for stones. MRCP not feasible due to pacemaker. - Abdominal pain is lower/pelvic - doubt related to pancreas - constipation, last BM 11/28/16. - anemia, partly dilutional, will check OB - pt on Plavix for CAD (this medication must be stopped 48 hours prior to any endoscopic procedure.) - iron deficient >> venofer Recommendations - adv to low fat diet - wean off narcotics - check stool OB - Monitor H&H - recommend outpatient EGD/colon once wounds healed - ? repeat CT if pain persists - fu labs The patient was seen and examined at bedside and all new and available data was reviewed in the patients chart. I agree with the above findings, impression and plan. (Patient seen earlier today. Signature stamp does not reflect patient encounter time.). -Lee Humphrey MD Subjective Gastrointestinal/Abdominal: Reports: no symptoms Subjective abdominal pain improved Objective Last 24 Hour Vital Signs Date Time Temp Pulse Resp B/P Pulse Ox O2 Delivery O2 Flow Rate FiO2 11/29/16 12:03 97.9 60 20 137/54 96 Nasal Cannula 1.0 11/29/16 11:54 66 11/29/16 11:07 97.3 11/29/16 09:04 149/61 11/29/16 09:03 70 149/61 11/29/16 08:00 97.3 70 20 149/61 97 Nasal Cannula 1.0 11/29/16 07:47 66 11/29/16 04:06 98.2 67 18 150/65 94 Room Air 11/29/16 04:00 65 11/29/16 00:00 98.3 71 17 149/67 95 Room Air 11/29/16 00:00 70 11/28/16 22:30 75 147/85 11/28/16 20:46 77 11/28/16 20:24 97.2 63 19 147/68 98 Room Air 11/28/16 17:23 150/68 11/28/16 16:00 66 11/28/16 15:33 97.5 67 18 150/68 96 Room Air Intake and Output 11/28/16 11/29/16 19:00 07:00 Intake Total 1957.5 ml 970.000 ml Balance 1957.5 ml 970.000 ml Intake Oral 950 ml IV Total 1007.5 ml 970.000 ml # Voids 3 2 # Bowel Movements 3 1 Laboratory Tests Test 11/29/16 05:15 White Blood Count 5.7 K/UL (4.8-10.8) Red Blood Count 2.99 M/UL (4.20-5.40) L Hemoglobin 8.1 G/DL (12.0-16.0) L Hematocrit 25.3 % (37.0-47.0) L Mean Corpuscular Volume 85 FL (80-99) Mean Corpuscular Hemoglobin 27.1 PG (27.0-31.0) Mean Corpuscular Hemoglobin Concent 32.1 G/DL (32.0-36.0) Red Cell Distribution Width 13.6 % (11.6-14.8) Platelet Count 283 K/UL (150-450) Mean Platelet Volume 5.3 FL (6.5-10.1) L Neutrophils (%) (Auto) 71.6 % (45.0-75.0) Lymphocytes (%) (Auto) 14.1 % (20.0-45.0) L Monocytes (%) (Auto) 8.8 % (1.0-10.0) Eosinophils (%) (Auto) 4.5 % (0.0-3.0) H Basophils (%) (Auto) 1.0 % (0.0-2.0) Sodium Level 138 mEQ/L (135-145) Potassium Level 3.9 mEQ/L (3.4-4.9) Chloride Level 99 mEQ/L (98-107) Carbon Dioxide Level 28 mEQ/L (20-30) Anion Gap 11 (5-15) Blood Urea Nitrogen 3 mg/dL (7-23) L Creatinine 0.5 mg/dL (0.5-0.9) Estimat Glomerular Filtration Rate mL/min (>60) Glucose Level 161 mg/dL (74-106) H Calcium Level 8.9 mg/dL (8.6-10.2) Magnesium Level 1.7 mg/dL (1.7-2.5) Total Bilirubin 0.6 mg/dL (0.0-1.2) Direct Bilirubin 0.2 mg/dL (0.1-0.3) Aspartate Amino Transf (AST/SGOT) 13 U/L (5-40) Alanine Aminotransferase (ALT/SGPT) 8 U/L (3-33) Alkaline Phosphatase 118 U/L (35-104) H Total Protein 5.3 g/dL (6.6-8.7) L Albumin 2.1 g/dL (3.5-5.2) L Amylase Level 31 U/L (10-110) Lipase 17 U/L (< 60) Height (Feet): 5 Height (Inches): 2.00 Weight (Pounds): 149 General Appearance: no apparent distress, alert, overweight Cardiovascular: normal rate Respiratory/Chest: normal breath sounds, no respiratory distress Abdominal Exam: normal bowel sounds, non tender, soft Extremities: normal range of motion Vanessa Wilson N.P. November 29, 2016 14:40 LEE HUMPHREY December 02, 2016 12:33
--- NOTE | 2016-11-29 14:52 | Infectious Diseases Prog Note ---
Assessment/Plan Assessment/Plan ASSESSMENT AND PLAN: 1. sepsis, leukocytosis, pancreatitis, most likely post-operative fluid and less abscess, incisions c/d without cellulitis - leukocytosis resolved - discontinue vancomycin and zosyn - check labs - surgery f/u noted - observe off abx 2. The patient has history of diabetes. 3. Hypertension. 4. Recent abdominal surgery for hernia repair and appendicitis. 5. Coronary artery disease. 6. Stents. 7. Pacemaker. 8. Chest pain. The patient has been seen by Cardiology. At this time, it is noncardiac chest pain. 9. Diabetes and hypertension treatment per Primary and Cardiology. 10. Hyperlipidemia. 11. Anemia. 12. Allergies are negative. 13. Case was discussed with Dr. Kemp. 14. Case was discussed with Dr. Oscar. 15. Social history negative. 16. MAR was noted. 17. Case was discussed with RN. 18. Family history is noncontributory. 19. Continue treatment per primary consultants. 20. Notes and records were reviewed. Subjective Constitutional: Denies: fever HEENT: Denies: congestion Respiratory: Denies: shortness of breath Cardiovascular: Denies: chest pain Gastrointestinal/Abdominal: Denies: diarrhea, nausea, vomiting Neurologic: Denies: headache Psychiatric: Reports: no symptoms Skin: Denies: rash Musculoskeletal: Denies: pain Allergies: Coded Allergies: No Known Allergies (Unverified , 11/23/16) Objective Vital Signs Last 24 Hour Vital Signs Date Time Temp Pulse Resp B/P Pulse Ox O2 Delivery O2 Flow Rate FiO2 11/29/16 12:03 97.9 60 20 137/54 96 Nasal Cannula 1.0 11/29/16 11:54 66 11/29/16 11:07 97.3 11/29/16 09:04 149/61 11/29/16 09:03 70 149/61 11/29/16 08:00 97.3 70 20 149/61 97 Nasal Cannula 1.0 11/29/16 07:47 66 11/29/16 04:06 98.2 67 18 150/65 94 Room Air 11/29/16 04:00 65 11/29/16 00:00 98.3 71 17 149/67 95 Room Air 11/29/16 00:00 70 11/28/16 22:30 75 147/85 11/28/16 20:46 77 11/28/16 20:24 97.2 63 19 147/68 98 Room Air 11/28/16 17:23 150/68 11/28/16 16:00 66 11/28/16 15:33 97.5 67 18 150/68 96 Room Air Height (Feet): 5 Height (Inches): 2.00 Weight (Pounds): 149 General Appearance: no acute distress HEENT: normocephalic, atraumatic, anicteric, mucous membranes moist, PERRL, EOMI, pharynx normal, supple, no JVD Respiratory/Chest: lungs clear, normal breath sounds, no respiratory distress, no accessory muscle use Cardiovascular: normal rate, regular rhythm, no gallop/murmur Abdomen: normal bowel sounds, soft, non tender, no organomegaly, non distended Genitourinary: other - no monique Extremities: no cyanosis Skin: no rash, other - incision - c/d, no cellulitis Neurologic/Psychiatric: delivery assistant II-XII grossly normal, alert, responsive Lymphatic: no neck adenopathy Musculoskeletal: no effusion Objective Chest x-ray - atx Ct scan: Impression: Postsurgical changes, as described, with evidence of recent laparoscopic appendectomy. There is a 7.8 x 2.3 x 4.6 cm phlegmon or fluid collection within the right lower quadrant wound. This is probably routine postoperative fluid, but abscess collection not completely excludable. Equivocal slight prominence of the pancreas. There is considerable infiltration of the peripancreatic and upper abdominal fat as well as fluid/thickening of Gerota 's fascia bilaterally. While possibly related to the recent surgery, distribution of this is not typical for such, and raises concern for acute pancreatitis. Correlation with laboratory findings is recommended. Trace ascites fluid. Possibly related to recent surgery or pancreatic disease. Somewhat high attenuation indicates this fluid could be bloody Slight wall thickening of the duodenum, could be related to adjacent pancreatic disease or could indicate mild duodenitis US abdomen: Impression: No evidence of biliary ductal dilatation. CBD is 6 mm. Mild free fluid likely associated with pancreatitis. Direct visualization of the pancreas limited on this study due to bowel gas. Right renal cyst. Microbiology Date/Time Source Procedure Growth Status 11/25/16 19:00 Blood Blood Culture - Preliminary NO GROWTH AFTER 72 HOURS Resulted 11/23/16 14:40 Nasal Nares MRSA Culture - Final NO METHICILLIN RESISTANT STAPH AUREUS... Complete 11/23/16 16:40 Urine,Clean Catch Urine Culture - Final NO GROWTH AFTER 48 HOURS Complete 11/23/16 14:40 Rectum VRE Culture - Final NO VANCOMYCIN RESISTANT ENTEROCOCCUS ... Complete Laboratory Tests Test 11/29/16 05:15 White Blood Count 5.7 K/UL (4.8-10.8) Red Blood Count 2.99 M/UL (4.20-5.40) L Hemoglobin 8.1 G/DL (12.0-16.0) L Hematocrit 25.3 % (37.0-47.0) L Mean Corpuscular Volume 85 FL (80-99) Mean Corpuscular Hemoglobin 27.1 PG (27.0-31.0) Mean Corpuscular Hemoglobin Concent 32.1 G/DL (32.0-36.0) Red Cell Distribution Width 13.6 % (11.6-14.8) Platelet Count 283 K/UL (150-450) Mean Platelet Volume 5.3 FL (6.5-10.1) L Neutrophils (%) (Auto) 71.6 % (45.0-75.0) Lymphocytes (%) (Auto) 14.1 % (20.0-45.0) L Monocytes (%) (Auto) 8.8 % (1.0-10.0) Eosinophils (%) (Auto) 4.5 % (0.0-3.0) H Basophils (%) (Auto) 1.0 % (0.0-2.0) Sodium Level 138 mEQ/L (135-145) Potassium Level 3.9 mEQ/L (3.4-4.9) Chloride Level 99 mEQ/L (98-107) Carbon Dioxide Level 28 mEQ/L (20-30) Anion Gap 11 (5-15) Blood Urea Nitrogen 3 mg/dL (7-23) L Creatinine 0.5 mg/dL (0.5-0.9) Estimat Glomerular Filtration Rate mL/min (>60) Glucose Level 161 mg/dL (74-106) H Calcium Level 8.9 mg/dL (8.6-10.2) Magnesium Level 1.7 mg/dL (1.7-2.5) Total Bilirubin 0.6 mg/dL (0.0-1.2) Direct Bilirubin 0.2 mg/dL (0.1-0.3) Aspartate Amino Transf (AST/SGOT) 13 U/L (5-40) Alanine Aminotransferase (ALT/SGPT) 8 U/L (3-33) Alkaline Phosphatase 118 U/L (35-104) H Total Protein 5.3 g/dL (6.6-8.7) L Albumin 2.1 g/dL (3.5-5.2) L Amylase Level 31 U/L (10-110) Lipase 17 U/L (< 60) Current Medications Medications (Trade) Dose Ordered Sig/Nicole Route PRN Reason Start Time Stop Time Status Last Admin Dose Admin Acetaminophen (Tylenol Peds) 320 mg Q6H PRN ORAL Mild Pain/Temp > 100.5 11/23/16 15:45 12/23/16 15:44 Acetaminophen/ Hydrocodone Bitart ([place] 5/325) 1 tab Q6H PRN ORAL MODERATE TO SEVERE PAIN 11/23/16 16:30 11/30/16 16:29 11/29/16 10:22 Benazepril HCl (Lotensin) 20 mg BID ORAL 11/25/16 18:00 12/25/16 17:59 11/29/16 09:04 Carvedilol (Coreg) 25 mg EVERY 12 HOURS ORAL 11/23/16 21:00 12/23/16 20:59 11/29/16 09:03 Clonidine HCl 0.1 mg 0.1 mg EVERY 3 HOURS PRN ORAL SBP > 170 11/27/16 00:00 12/27/16 00:00 Clopidogrel Bisulfate (Plavix) 75 mg DAILY ORAL 11/24/16 09:00 12/24/16 08:59 11/29/16 09:04 Clotrimazole 1 applic 1 applic EVERY 12 HOURS TOPIC 11/24/16 21:00 12/24/16 20:59 11/29/16 09:04 Dextrose/ Electrolytes (D5 0.45%NS W/ KCl 20mEq) 1,000 ml @ 75 mls/hr [id number] IV 11/25/16 12:30 12/25/16 12:29 11/29/16 11:25 Iron Sucrose 100 mg/Sodium Chloride 60 ml @ 240 mls/hr BEDTIME IVPB 11/28/16 21:00 12/02/16 21:14 11/28/16 22:30 Nitroglycerin (Ntg) 0.4 mg Q5MIN X 3 DOSES PRN SL CHEST PAIN 11/23/16 15:45 12/23/16 15:44 Ondansetron HCl (Zofran) 4 mg Q4H PRN IVP Nausea & Vomiting 11/24/16 00:15 12/24/16 00:14 11/25/16 03:22 Piperacillin Sod/ Tazobactam Sod 3.375 gm/Sodium Chloride 110 ml @ 27.5 mls/hr EVERY 8 HOURS IVPB 11/28/16 22:00 12/05/16 21:59 11/29/16 14:21 Vancomycin HCl (Vanco rx to dose) 1 ea DAILY PRN MISC Per rx protocol 11/25/16 11:45 12/25/16 11:44 Vancomycin HCl/ Dextrose (Vancomycin/D5W) 275 ml @ 183.708 mls/hr Q12H IVPB 11/28/16 19:00 12/03/16 18:59 11/29/16 06:02 AKILAH ALVARES November 29, 2016 14:52
[2016-11-29 16:02] VITALS: BP 138/57
[2016-11-29 20:00] VITALS: BP_SYST 139; BP_SYST 160; BP_DIAS 61; BP_DIAS 85
[2016-11-29] MEDS: Iron Sucrose 100 MG in NS 55 ML IVPB SCH (21:14)
[2016-11-30] VITALS: BP 146/64
[2016-11-30 04:00] VITALS: BP 149/66
--- NOTE | 2016-11-30 05:59 | Progress Note ---
DATE: 11/29/2016 CARDIOLOGY PROGRESS NOTE SUBJECTIVE: The patient has less abdominal pain. She is tolerating clear liquids and advancing diet. She has not had any more chest pain since admission. OBJECTIVE: VITAL SIGNS: Blood pressure 149/61, pulse 70, respirations 20, and afebrile. HEENT: Sclerae anicteric. NECK: Supple. LUNGS: Clear. CARDIAC: Regular. Normal S1 and S2 with no murmur. There is a fourth heart sound. ABDOMEN: Soft. Mild epigastric tenderness. No guarding or rebound. EXTREMITIES: No edema. IMPRESSION AND PLAN: 1. Acute pancreatitis, resolved. 2. Leukocytosis, recovered. 3. Postoperative wound infection and cellulitis, improved. 4. Status post appendectomy and hernia repair. 5. Diabetes mellitus, controlled. 6. Hypertensive heart disease with high normal blood pressure range at this time, but limited oral intake. 7. Anginal episode with no recurrence and stable angina in the setting of known coronary disease with prior coronary stents. 8. Transitioning from topical and intravenous to oral therapy in anticipation of discharge. Edgar Oscar M.D. DR: OLIVIA JOB#: [id number] CC:
[2016-11-30 08:07] LABS: BASOPHILS % (AUTO) 1.3 % (0.0-2.0); EOSINOPHILS % (AUTO) 6.7 % (0.0-3.0); MEAN CORPUSCULAR HEMOGLOBIN 27.4 PG (27.0-31.0); MEAN CORPUSCULAR HGB CONC 32.3 G/DL (32.0-36.0); MEAN CORPUSCULAR VOLUME 85 FL (80-99); MEAN PLATELET VOLUME 5.4 FL (6.5-10.1); MONOCYTES % (AUTO) 11.4 % (1.0-10.0); NEUTROPHILS % (AUTO) 62.6 % (45.0-75.0); PLATELET COUNT 291 K/UL (150-450); RED BLOOD COUNT 3.08 M/UL (4.20-5.40); RED CELL DISTRIBUTION WIDTH 14.1 % (11.6-14.8)
[2016-11-30 08:18] LABS: ANION GAP 12 (5-15); CALCIUM 9.4 mg/dL (8.6-10.2); CARBON DIOXIDE 28 mEQ/L (20-30); CHLORIDE 102 mEQ/L (98-107); CREATININE 0.6 mg/dL (0.5-0.9); HEMOLYSIS 1; POTASSIUM 3.9 mEQ/L (3.4-4.9); SODIUM 142 mEQ/L (135-145)
[2016-11-30 08:46] VITALS: BP 159/64
[2016-11-30] MEDS ORDERED: Imdur 30mg tab ORAL SCH (09:00)
[2016-11-30] MEDS: Benazepril 10mg tab ORAL SCH ×2 (09:30→18:25)
[2016-11-30] MEDS: Carvedilol 25mg Tab ORAL SCH (09:31)
[2016-11-30] MEDS ORDERED: Tubing IV Secondary IV ONE (10:23)
[2016-11-30] MEDS ORDERED: NS 275ml ONE (10:23)
--- NOTE | 2016-11-30 11:24 | GI Progress Note ---
Assessment/Plan Problems: (1) Abdominal pain ICD Codes: R10.9 - Unspecified abdominal pain SNOMED: 24088771 Qualifiers: Qualified Codes: R10.84 - Generalized abdominal pain (2) Pancreatitis ICD Codes: K85.90 - Acute pancreatitis without necrosis or infection, unspecified SNOMED: 03053683 (3) Constipation ICD Codes: K59.00 - Constipation, unspecified SNOMED: 02532356 (4) Anemia ICD Codes: D64.9 - Anemia, unspecified SNOMED: 263581946 Status: stable Status Narrative Discussed with Dr. Humphrey. Assessment/Plan Assessment - Recent pancreatitis, resolved. Presumed due to passed stone. - CT and U/S negative for stones. MRCP not feasible due to pacemaker. - Abdominal pain is lower/pelvic - doubt related to pancreas - constipation, last BM 11/28/16. - anemia, partly dilutional, will check OB - pt on Plavix for CAD (this medication must be stopped 48 hours prior to any endoscopic procedure.) - iron deficient >> venofer - OB stool negative Recommendations - ok for DC per GI standpoint - low fat diet, tolerating - wean off narcotics - stable H&H - fu labs - recommend outpatient EGD/colon The patient was seen and examined at bedside and all new and available data was reviewed in the patients chart. I agree with the above findings, impression and plan. (Patient seen earlier today. Signature stamp does not reflect patient encounter time.). -Lee Humphrey MD Subjective Subjective abdominal pain resolved Objective Last 24 Hour Vital Signs Date Time Temp Pulse Resp B/P Pulse Ox O2 Delivery O2 Flow Rate FiO2 11/30/16 09:31 159/64 11/30/16 09:31 77 159/64 11/30/16 09:30 159/64 11/30/16 08:46 97.9 77 18 159/64 97 Nasal Cannula 11/30/16 08:00 77 11/30/16 04:00 65 11/30/16 04:00 97.7 67 20 149/66 95 Room Air 11/30/16 00:23 97.7 11/30/16 00:00 97.7 64 20 146/64 96 Room Air 11/30/16 00:00 63 11/29/16 21:16 70 160/85 11/29/16 20:00 67 11/29/16 20:00 97.3 68 21 139/61 98 Room Air 11/29/16 20:00 97.5 70 20 160/85 99 Room Air 11/29/16 17:52 138/57 11/29/16 16:02 97.2 63 20 138/57 99 Room Air 11/29/16 15:08 59 11/29/16 12:03 97.9 60 20 137/54 96 Nasal Cannula 1.0 11/29/16 11:54 66 Intake and Output 11/29/16 11/30/16 19:00 07:00 Intake Total 1518.708 ml 450 ml Balance 1518.708 ml 450 ml Intake Oral 360 ml IV Total 1158.708 ml 450 ml # Voids 3 2 Laboratory Tests Test 11/30/16 06:50 White Blood Count 4.0 K/UL (4.8-10.8) L Red Blood Count 3.08 M/UL (4.20-5.40) L Hemoglobin 8.4 G/DL (12.0-16.0) L Hematocrit 26.2 % (37.0-47.0) L Mean Corpuscular Volume 85 FL (80-99) Mean Corpuscular Hemoglobin 27.4 PG (27.0-31.0) Mean Corpuscular Hemoglobin Concent 32.3 G/DL (32.0-36.0) Red Cell Distribution Width 14.1 % (11.6-14.8) Platelet Count 291 K/UL (150-450) Mean Platelet Volume 5.4 FL (6.5-10.1) L Neutrophils (%) (Auto) 62.6 % (45.0-75.0) Lymphocytes (%) (Auto) 18.0 % (20.0-45.0) L Monocytes (%) (Auto) 11.4 % (1.0-10.0) H Eosinophils (%) (Auto) 6.7 % (0.0-3.0) H Basophils (%) (Auto) 1.3 % (0.0-2.0) Sodium Level 142 mEQ/L (135-145) Potassium Level 3.9 mEQ/L (3.4-4.9) Chloride Level 102 mEQ/L (98-107) Carbon Dioxide Level 28 mEQ/L (20-30) Anion Gap 12 (5-15) Blood Urea Nitrogen 3 mg/dL (7-23) L Creatinine 0.6 mg/dL (0.5-0.9) Estimat Glomerular Filtration Rate mL/min (>60) Glucose Level 119 mg/dL (74-106) H Calcium Level 9.4 mg/dL (8.6-10.2) Height (Feet): 5 Height (Inches): 2.00 Weight (Pounds): 149 General Appearance: no apparent distress, alert, overweight Cardiovascular: normal rate Respiratory/Chest: normal breath sounds, no respiratory distress Abdominal Exam: normal bowel sounds, non tender, soft Vanessa Wilson N.P. November 30, 2016 11:24 LEE HUMPHREY December 02, 2016 12:34
--- NOTE | 2016-11-30 12:00 | Infectious Diseases Prog Note ---
Assessment/Plan Assessment/Plan ASSESSMENT AND PLAN: 1. sepsis, leukocytosis, pancreatitis, most likely post-operative fluid and less likely abscess, incisions c/d without cellulitis - leukocytosis resolved - stable off abx, no fevers, no leukocytosis - check labs - surgery f/u noted - observe off abx 2. The patient has history of diabetes. 3. Hypertension. 4. Recent abdominal surgery for hernia repair and appendicitis. 5. Coronary artery disease. 6. Stents. 7. Pacemaker. 8. Chest pain. The patient has been seen by Cardiology. At this time, it is noncardiac chest pain. 9. Diabetes and hypertension treatment per Primary and Cardiology. 10. Hyperlipidemia. 11. Anemia. 12. Allergies are negative. 13. Case was discussed with Dr. Kemp. 14. Case was discussed with Dr. Oscar. 15. Social history negative. 16. MAR was noted. 17. Case was discussed with RN. 18. Family history is noncontributory. 19. Continue treatment per primary consultants. 20. Notes and records were reviewed. Subjective Constitutional: Reports: fatigue, Denies: fever HEENT: Denies: congestion Respiratory: Denies: shortness of breath Cardiovascular: Denies: chest pain Gastrointestinal/Abdominal: Denies: diarrhea, nausea, vomiting Genitourinary: Reports: other - no monique Neurologic: Denies: headache Psychiatric: Denies: depression Skin: Denies: rash Hematologic: Denies: bleeding Musculoskeletal: Denies: pain Allergies: Coded Allergies: No Known Allergies (Unverified , 11/23/16) Objective Vital Signs Last 24 Hour Vital Signs Date Time Temp Pulse Resp B/P Pulse Ox O2 Delivery O2 Flow Rate FiO2 11/30/16 09:31 159/64 11/30/16 09:31 77 159/64 11/30/16 09:30 159/64 11/30/16 08:46 97.9 77 18 159/64 97 Nasal Cannula 11/30/16 08:00 77 11/30/16 04:00 65 11/30/16 04:00 97.7 67 20 149/66 95 Room Air 11/30/16 00:23 97.7 11/30/16 00:00 97.7 64 20 146/64 96 Room Air 11/30/16 00:00 63 11/29/16 21:16 70 160/85 11/29/16 20:00 67 11/29/16 20:00 97.3 68 21 139/61 98 Room Air 11/29/16 20:00 97.5 70 20 160/85 99 Room Air 11/29/16 17:52 138/57 11/29/16 16:02 97.2 63 20 138/57 99 Room Air 11/29/16 15:08 59 11/29/16 12:03 97.9 60 20 137/54 96 Nasal Cannula 1.0 Height (Feet): 5 Height (Inches): 2.00 Weight (Pounds): 149 General Appearance: no acute distress HEENT: normocephalic, atraumatic, anicteric, mucous membranes moist, PERRL, EOMI, pharynx normal, supple, no JVD Respiratory/Chest: lungs clear, normal breath sounds, no accessory muscle use Cardiovascular: normal rate, regular rhythm, no gallop/murmur Abdomen: normal bowel sounds, soft, non tender, no organomegaly, distended - mild distention Genitourinary: other - no monique Extremities: no cyanosis Skin: no rash Neurologic/Psychiatric: support manager II-XII grossly normal, alert, oriented x 3 Lymphatic: no neck adenopathy Musculoskeletal: no effusion Objective Chest x-ray - atx Ct scan: Impression: Postsurgical changes, as described, with evidence of recent laparoscopic appendectomy. There is a 7.8 x 2.3 x 4.6 cm phlegmon or fluid collection within the right lower quadrant wound. This is probably routine postoperative fluid, but abscess collection not completely excludable. Equivocal slight prominence of the pancreas. There is considerable infiltration of the peripancreatic and upper abdominal fat as well as fluid/thickening of Gerota 's fascia bilaterally. While possibly related to the recent surgery, distribution of this is not typical for such, and raises concern for acute pancreatitis. Correlation with laboratory findings is recommended. Trace ascites fluid. Possibly related to recent surgery or pancreatic disease. Somewhat high attenuation indicates this fluid could be bloody Slight wall thickening of the duodenum, could be related to adjacent pancreatic disease or could indicate mild duodenitis US abdomen: Impression: No evidence of biliary ductal dilatation. CBD is 6 mm. Mild free fluid likely associated with pancreatitis. Direct visualization of the pancreas limited on this study due to bowel gas. Right renal cyst. Microbiology Date/Time Source Procedure Growth Status 11/25/16 19:00 Blood Blood Culture - Preliminary NO GROWTH AFTER 4 DAYS Resulted 11/23/16 14:40 Nasal Nares MRSA Culture - Final NO METHICILLIN RESISTANT STAPH AUREUS... Complete 11/23/16 16:40 Urine,Clean Catch Urine Culture - Final NO GROWTH AFTER 48 HOURS Complete 11/23/16 14:40 Rectum VRE Culture - Final NO VANCOMYCIN RESISTANT ENTEROCOCCUS ... Complete Laboratory Tests Test 11/30/16 06:50 White Blood Count 4.0 K/UL (4.8-10.8) L Red Blood Count 3.08 M/UL (4.20-5.40) L Hemoglobin 8.4 G/DL (12.0-16.0) L Hematocrit 26.2 % (37.0-47.0) L Mean Corpuscular Volume 85 FL (80-99) Mean Corpuscular Hemoglobin 27.4 PG (27.0-31.0) Mean Corpuscular Hemoglobin Concent 32.3 G/DL (32.0-36.0) Red Cell Distribution Width 14.1 % (11.6-14.8) Platelet Count 291 K/UL (150-450) Mean Platelet Volume 5.4 FL (6.5-10.1) L Neutrophils (%) (Auto) 62.6 % (45.0-75.0) Lymphocytes (%) (Auto) 18.0 % (20.0-45.0) L Monocytes (%) (Auto) 11.4 % (1.0-10.0) H Eosinophils (%) (Auto) 6.7 % (0.0-3.0) H Basophils (%) (Auto) 1.3 % (0.0-2.0) Sodium Level 142 mEQ/L (135-145) Potassium Level 3.9 mEQ/L (3.4-4.9) Chloride Level 102 mEQ/L (98-107) Carbon Dioxide Level 28 mEQ/L (20-30) Anion Gap 12 (5-15) Blood Urea Nitrogen 3 mg/dL (7-23) L Creatinine 0.6 mg/dL (0.5-0.9) Estimat Glomerular Filtration Rate mL/min (>60) Glucose Level 119 mg/dL (74-106) H Calcium Level 9.4 mg/dL (8.6-10.2) Current Medications Medications (Trade) Dose Ordered Sig/Nicole Route PRN Reason Start Time Stop Time Status Last Admin Dose Admin Acetaminophen (Tylenol Peds) 320 mg Q6H PRN ORAL Mild Pain/Temp > 100.5 11/23/16 15:45 12/23/16 15:44 Acetaminophen/ Hydrocodone Bitart ([place] 5/325) 1 tab Q6H PRN ORAL MODERATE TO SEVERE PAIN 11/23/16 16:30 11/30/16 16:29 11/29/16 23:24 Benazepril HCl (Lotensin) 20 mg BID ORAL 11/25/16 18:00 12/25/16 17:59 11/30/16 09:30 Carvedilol (Coreg) 25 mg EVERY 12 HOURS ORAL 11/23/16 21:00 12/23/16 20:59 11/30/16 09:31 Clonidine HCl 0.1 mg 0.1 mg EVERY 3 HOURS PRN ORAL SBP > 170 11/27/16 00:00 12/27/16 00:00 Clopidogrel Bisulfate (Plavix) 75 mg DAILY ORAL 11/24/16 09:00 12/24/16 08:59 11/30/16 09:30 Clotrimazole (Lotrimin) 1 applic EVERY 12 HOURS TOPIC 11/24/16 21:00 12/24/16 20:59 11/30/16 09:31 Iron Sucrose/ Sodium Chloride (Venofer/Sodium Chloride) 60 ml @ 240 mls/hr BEDTIME IVPB 11/28/16 21:00 12/02/16 21:14 11/29/16 21:14 Isosorbide Mononitrate (Imdur) 30 mg DAILY ORAL 11/30/16 09:00 12/30/16 08:59 11/30/16 09:31 Nitroglycerin (Ntg) 0.4 mg Q5MIN X 3 DOSES PRN SL CHEST PAIN 11/23/16 15:45 12/23/16 15:44 Ondansetron HCl (Zofran) 4 mg Q4H PRN IVP Nausea & Vomiting 11/24/16 00:15 12/24/16 00:14 11/25/16 03:22 AKILAH ALVARES November 30, 2016 12:00
--- NOTE | 2016-11-30 12:13 | General Progress Note ---
Progress Note Progress Note Afebrile. Pt continues to c/o epigastric pain, she is tolerating PO intake. Abdomen is soft. She is stable from a surgical standpoint. She can be transferred back to her convalescent facility. She needs to follow up with Dr Clarke for staple removal. Nico Esqueda MD November 30, 2016 12:13
[2016-11-30] MEDS: Norco 5mg/325mg tab ORAL PRN (12:21)
--- NOTE | 2016-11-30 12:28 | Discharge Summary ---
Discharge Summary Hospital Course Date of Admission November 23, 2016 at 13:56 Date of Discharge 11/30/16 Admitting Diagnosis CP/tachyarrhythmia HPI Rach Nathan is a 76 year old female who was admitted on November 23, 2016 at 13: 56 for Chest Pain Tachyarrhythmia Consultations GI, surgery, cardiology Procedures no Hospital Course chest pain resolved, no MS abd pain worse; imaging and labs c/w acute pancreatitis enzymes normalized post op pain mild knee OA, difficulty ambulating dc to SNF Discharge Medications Continued Medications: Albuterol Sulfate* (Albuterol Sulfate Hhn*) 2.5 Mg/3 Ml Vial.neb 3 ML INH Q4H PRN for Shortness of Breath, EA Amino Acids/Protein Hydrolys (Pro-Stat Liquid) 30 Ml Liquid.pkt 30 ML ORAL DAILY, ML Ascorbic Acid* (Ascorbic Acid*) 500 Mg Tablet 500 MG ORAL DAILY Atorvastatin Calcium* (Lipitor*) 10 Mg Tablet 10 MG ORAL BEDTIME Benazepril Hcl* (Benazepril Hcl*) 10 Mg Tablet 10 MG ORAL BID, TAB Bisacodyl (Bisacodyl) 10 Mg Supp.rect 10 MG RC PRN Carvedilol* (Carvedilol*) 25 Mg Tablet 25 MG ORAL EVERY 12 HOURS, TAB Clonidine Hcl (Clonidine Hcl) 0.1 Mg Tablet 0.1 MG PO Q8HR PRN for For High Blood Pressure Give 1 tablet PO q8hrs PRN for HTN for SBP>170, hold if HR<50 Clonidine Hcl* (Catapres*) 0.1 Mg Tablet 0.1 MG ORAL DAILY, TAB Clopidogrel* (Clopidogrel*) 75 Mg Tablet 75 MG ORAL DAILY, TAB Docusate Sodium* (Colace*) 100 Mg Capsule 100 MG ORAL TWICE A DAY, CAP Ferrous Sulfate* (Ferrous Sulfate*) 325 Mg Tablet 325 MG ORAL DAILY Fluticasone Propionate* (Fluticasone Propionate*) 16 Gm [place].susp 1 SPRAY NASAL TWICE A DAY Hydrocodone Bit/Acetaminophen 5-325* ([place] 5-325 Tablet*) 1 Each Tablet 1 TAB ORAL Q6H PRN for For Pain Isosorbide Mononitrate (Isosorbide Mononitrate) 20 Mg Tablet 30 MG PO, TAB Multivitamin with Minerals (Multivitamins with Minerals) 1 Each Tablet 1 TAB ORAL DAILY Nitroglycerin (Nitroglycerin) 0.4 Mg Tab.subl 0.4 MG SL PRN for CHEST PAIN, TAB Ondansetron* (Zofran*) 4 Mg Tablet 4 MG ORAL Q6H PRN for Nausea & Vomiting, TAB Discontinued Medications: Guaifenesin/Dextromethorphan (Robitussin Cough-Chest Dm Liq) 237 Ml Liquid 10 ML PO Q6HR PRN for For Cough Discharge Condition Upon Discharge: improving Discharge Disposition Patient was discharged to SNF Discharge Diagnoses: (1) ACS (acute coronary syndrome) (2) Tachyarrhythmia (3) Abdominal pain (4) Post-op pain (5) Pancreatitis MAY MARSH November 30, 2016 12:28
[2016-11-30 12:47] VITALS: BP 145/59
[2016-11-30 16:48] VITALS: BP 145/63
[2016-11-30 19:46] VITALS: BP 180/78
--- NOTE | 2016-11-30 22:19 | Progress Note ---
DATE: 11/30/2016 CARDIOLOGY PROGRESS NOTE SUBJECTIVE: The patient is tolerating diet. No nausea or vomiting. Mild abdominal pain. No shortness of breath or chest pain. OBJECTIVE: VITAL SIGNS: Blood pressure 159/64, pulse 77, and respirations 18. NECK: Supple. LUNGS: Clear. CARDIAC: Regular. Normal S1 and S2 with a fourth heart sound. ABDOMEN: With minimal mid epigastric discomfort. EXTREMITIES: No edema. IMPRESSION: 1. Recovering pancreatitis. 2. Hypertensive heart disease with rising blood pressure range. 3. Postoperative skin infection following hernia repair and appendectomy, recovered. 4. Coronary artery disease with stable angina and prior history of coronary stent. 5. Permanent pacemaker. 6. Paroxysmal atrial fibrillation. PLAN: 1. Observe as an outpatient. 2. May need further titration of antihypertensives. For now, stable on current regimen. 3. Continue anti-platelet and anti-lipid drugs. LDL goal less than 100. 4. Outpatient cardiovascular followup should include exercise stress test once GI comorbidities have returned to baseline. Edgar Oscar M.D. DR: OLIVIA JOB#: [id number] CC:
== END 2016-11-30 20:10 | DRG 302 ==
LOC: EDBD 12:51 → EMR 13:30 → 2E 13:56 → EDBEDREQ 15:47 → 2E 11-25 02:16 → 4E 11-29 20:37 → 2E 11-29 20:58
DX: I25.119 Atherosclerotic heart disease of native coronary artery with unspecified angina pectoris (principal); K85.90 Acute pancreatitis without necrosis or infection, unspecified; E43 Unspecified severe protein-calorie malnutrition; E11.9 Type 2 diabetes mellitus without complications; I11.9 Hypertensive heart disease without heart failure; E83.42 Hypomagnesemia; L03.90 Cellulitis, unspecified; I16.0 Hypertensive urgency; Z95.0 Presence of cardiac pacemaker; R00.0 Tachycardia, unspecified; R10.9 Unspecified abdominal pain; Z95.5 Presence of coronary angioplasty implant and graft; E78.5 Hyperlipidemia, unspecified; D50.9 Iron deficiency anemia, unspecified
CPT/HCPCS: 36415; 71010; 74000; 74176; 76700; 80048; 80053; 80061; 80076; 80202; 81001; 82150; 82270; 82550; 83540; 83550; 83690; 83735; 83880; 84443; 84484; 85007; 85025; 85610; 85730; 87040; 87081; 87086; 93005; 93306; 93970; J2405